=== PATIENT | male | born 1975 | race Hispanic/Latino ===

== ENCOUNTER 2018-06-21 19:39 | Emergency (ER) | payer OTHER ==
[~2018-06-21] VITALS: Ht 172.7 cm; Wt 83.9 kg
--- OUTSIDE RECORDS SUMMARY | 2018-06-21 19:44 | XMS REPORT ---
Author Author Micah Elliott Organization [employer] Address Unknown Phone Unavailable Care Team Providers Care Briquetting Machine Operator Name Role Phone Micah Elliott CP Unavailable Allergies No Known Allergies Problems Problem Type Condition Code Onset Dates Condition Status Problem Increased urinary frequency R35.0 Active Problem Low HDL (under 40) E78.6 Active Problem High serum estradiol R79.89 Active Problem Essential hypertension I10 Active Problem Erectile dysfunction due to diseases classified elsewhere N52.1 Active Problem Transient insomnia F51.02 Active Problem Obesity (BMI 30.0-34.9) E66.9 Active Medications No Known Medications Results No Known Results Summary Purpose [employer] Submission
--- OUTSIDE RECORDS SUMMARY | 2018-06-21 19:44 | XMS REPORT ---
Author Author Micah Elliott Organization [employer] Address Unknown Phone Unavailable Care Team Providers Care Transition Of Care Specialist Name Role Phone Micah Elliott CP Unavailable Allergies No Known Allergies Problems Problem Type Condition Code Onset Dates Condition Status Problem Essential hypertension I10 Active Problem Erectile dysfunction due to diseases classified elsewhere N52.1 Active Problem Obesity (BMI 30.0-34.9) E66.9 Active Assessment Decreased libido R68.82 Active Medications Medication Code System Code Instructions Start Date End Date Status Dosage HCG (Lyo) NDC 0 1,000 IU/mL SC/IM twice per week August 22, 2017 Inactive 500 IU HCG (Lyo) NDC 0 1,000 IU/mL SC/IM twice per week August 26, 2017 Active 500 IU Results No Known Results Summary Purpose [employer] Submission
--- OUTSIDE RECORDS SUMMARY | 2018-06-21 19:44 | XMS REPORT ---
Author Author Micah Elliott Organization [employer] Address Unknown Phone Unavailable Care Team Providers Care Electronics Teacher Name Role Phone Micah Elliott CP Unavailable Allergies, Adverse Reactions, Alerts Substance Reaction Event Type N.K.D.A. Info Not Available Non Drug Allergy Problems Problem Type Condition Code Onset Dates Condition Status Problem Essential hypertension I10 Active Problem Erectile dysfunction due to diseases classified elsewhere N52.1 Active Problem Obesity (BMI 30.0-34.9) E66.9 Active Assessment Decreased libido R68.82 Active Assessment Obesity (BMI 30.0-34.9) E66.9 Active Assessment Essential hypertension I10 Active Assessment Erectile dysfunction due to diseases classified elsewhere N52.1 Active Medications Medication Code System Code Instructions Start Date End Date Status Dosage TESTOSTERONE CYPIONATE (Grapeseed Oil) NDC 0 200mg/mL subcutaneously daily August 22, 2017 Active 0.15 ml HCG (Lyo) NDC 0 1,000 IU/mL SC/IM twice per week August 22, 2017 Active 500 IU Testosterone Cypionate NDC 74956253053 200 MG/ML subcutaneously daily August 22, 2017 Active 0.15 ml HCG (Lyo) NDC 0 1,000 IU/mL SC/IM twice per week Active 500 IU Cosentyx Sensoready Pen NDC 48376256115 150 MG/ML Subcutaneous once per month Active 2 ml Trimix NDC 0 .15 IM Active as directed Vital Signs Date/Time: August 22, 2017 Weight 205.4 lbs Height 67.5 in Temperature 98.4 F Cardiac Monitoring Heart Rate 63 /min BMI 31.69 Index Results No Known Results Summary Purpose [employer] Submission
--- OUTSIDE RECORDS SUMMARY | 2018-06-21 19:44 | XMS REPORT ---
Author Author Micah Elliott Organization [employer] Address Unknown Phone Unavailable Care Team Providers Care Critical Care Clinical Nurse Specialist Name Role Phone Micah Elliott CP Unavailable Allergies No Known Allergies Problems Problem Type Condition Code Onset Dates Condition Status Problem Low HDL (under 40) E78.6 Active Problem Increased urinary frequency R35.0 Active Problem Transient insomnia F51.02 Active Problem Obesity (BMI 30.0-34.9) E66.9 Active Problem Essential hypertension I10 Active Problem High serum estradiol R79.89 Active Problem Erectile dysfunction due to diseases classified elsewhere N52.1 Active Medications No Known Medications Results No Known Results Summary Purpose [employer] Submission
--- OUTSIDE RECORDS SUMMARY | 2018-06-21 19:44 | XMS REPORT ---
Author Author Micah Elliott Organization [employer] Address Unknown Phone Unavailable Care Team Providers Care Professor Of Voice Name Role Phone Micah Elliott CP Unavailable [...]
--- OUTSIDE RECORDS SUMMARY | 2018-06-21 19:44 | XMS REPORT ---
Author Author Micah Elliott Organization [employer] Address Unknown Phone Unavailable Care Team Providers Care Cooling Pan Tender Name Role Phone Micah Elliott CP Unavailable Allergies No Known Allergies Problems Problem Type Condition Code Onset Dates Condition Status Problem Essential hypertension I10 Active Problem Erectile dysfunction due to diseases classified elsewhere N52.1 Active Problem Obesity (BMI 30.0-34.9) E66.9 Active Medications No Known Medications Results No Known Results Summary Purpose [employer] Submission
--- OUTSIDE RECORDS SUMMARY | 2018-06-21 19:44 | XMS REPORT ---
Author Author Ngoc Harvey Organization [employer] Address Unknown Phone Unavailable Care Team Providers Care After School Counselor Name Role Phone Ngoc Harvey CP Unavailable Allergies, Adverse Reactions, Alerts Substance Reaction Event Type N.K.D.A. Info Not Available Non Drug Allergy Problems Problem Type Condition Code Onset Dates Condition Status Assessment Decreased libido without sexual dysfunction R68.82 Active Problem Low testosterone in male E29.1 Active Assessment Encounter to establish care Z76.89 Active Problem Chronic fatigue R53.82 Active Assessment Screening cholesterol level Z13.220 Active Assessment Low testosterone in male E29.1 Active Assessment Chronic fatigue R53.82 Active Assessment Urinary frequency R35.0 Active Medications Medication Code System Code Instructions Start Date End Date Status Dosage HydrOXYzine HCl [facility] [address]-28 25 MG Orally At night time Active 1 tablet Vital Signs Date/Time: May 27, 2017 BMI 30.10 Index Weight 198 lbs Height 68 in Temperature 98.3 F Blood Pressure Diastolic 79 mm Hg Blood Pressure Systolic 126 mm Hg Results No Known Results Summary Purpose [employer] Submission
--- OUTSIDE RECORDS SUMMARY | 2018-06-21 19:44 | XMS REPORT ---
Author Author BALDEMAR SELBY Organization [employer] Address Unknown Phone Unavailable Care Team Providers Care Edge Setter Name Role Phone BALDEMAR SELBY CP Unavailable Allergies No Known Allergies Problems No Known Problems Medications No Known Medications Results No Known Results Summary Purpose [employer] Submission
--- OUTSIDE RECORDS SUMMARY | 2018-06-21 19:44 | XMS REPORT ---
Author Author Micah Elliott Organization [employer] Address Unknown Phone Unavailable Care Team Providers Care Saddle And Harness Maker Name Role Phone Micah Elliott CP Unavailable Allergies No Known Allergies Problems Problem Type Condition Code Onset Dates Condition Status Problem Essential hypertension I10 Active Problem Erectile dysfunction due to diseases classified elsewhere N52.1 Active Problem Obesity (BMI 30.0-34.9) E66.9 Active Medications No Known Medications Results No Known Results Summary Purpose [employer] Submission
--- OUTSIDE RECORDS SUMMARY | 2018-06-21 19:44 | XMS REPORT ---
Author Author BALDEMAR SELBY Organization [employer] Address Unknown Phone Unavailable Care Team Providers Care Hot Stick Man Name Role Phone BALDEMAR SELBY CP Unavailable Allergies No Known Allergies Problems No Known Problems Medications No Known Medications Results No Known Results Summary Purpose [employer] Submission
--- OUTSIDE RECORDS SUMMARY | 2018-06-21 19:44 | XMS REPORT ---
Author Author Micah Elliott Organization [employer] Address Unknown Phone Unavailable Care Team Providers Care Acid Correction Hand Name Role Phone Micah Elliott CP Unavailable Allergies No Known Allergies Problems Problem Type Condition Code Onset Dates Condition Status Problem Essential hypertension I10 Active Problem Erectile dysfunction due to diseases classified elsewhere N52.1 Active Problem Obesity (BMI 30.0-34.9) E66.9 Active Medications No Known Medications Results No Known Results Summary Purpose [employer] Submission
--- OUTSIDE RECORDS SUMMARY | 2018-06-21 19:44 | XMS REPORT ---
Author Author Micah Elliott Organization [employer] Address Unknown Phone Unavailable Care Team Providers Care Financial Assistance Advisor Name Role Phone Micah Elliott CP Unavailable [...]
--- OUTSIDE RECORDS SUMMARY | 2018-06-21 19:44 | XMS REPORT ---
Author Author Micah Elliott Organization [employer] Address Unknown Phone Unavailable Care Team Providers Care Spreader Box Operator Name Role Phone Micah Elliott CP Unavailable Allergies No Known Allergies Problems Problem Type Condition Code Onset Dates Condition Status Problem Essential hypertension I10 Active Problem Erectile dysfunction due to diseases classified elsewhere N52.1 Active Problem Obesity (BMI 30.0-34.9) E66.9 Active Medications No Known Medications Results No Known Results Summary Purpose [employer] Submission
--- OUTSIDE RECORDS SUMMARY | 2018-06-21 19:44 | XMS REPORT ---
Author Author Micah Elliott Organization [employer] Address Unknown Phone Unavailable Care Team Providers Care Nurse Ortho Name Role Phone Micah Elliott CP Unavailable Allergies, Adverse Reactions, Alerts Substance Reaction Event Type N.K.D.A. Info Not Available Non Drug Allergy Problems Problem Type Condition Code Onset Dates Condition Status Assessment Low HDL (under 40) E78.6 Active Assessment Essential hypertension I10 Active Assessment Transient insomnia F51.02 Active Assessment High serum estradiol R79.89 Active Assessment Erectile dysfunction due to diseases classified elsewhere N52.1 Active Problem Low HDL (under 40) E78.6 Active Problem Increased urinary frequency R35.0 Active Problem Transient insomnia F51.02 Active Problem Obesity (BMI 30.0-34.9) E66.9 Active Problem Essential hypertension I10 Active Problem High serum estradiol R79.89 Active Problem Erectile dysfunction due to diseases classified elsewhere N52.1 Active Medications Medication Code System Code Instructions Start Date End Date Status Dosage Lisinopril NDC 13894548584 5 MG Orally Once a day September 05, 2017 Active 1 tablet Trimix NDC 0 .15 IM Active as directed Zolpidem Tartrate NDC 82538148758 10 mg Orally Once a day September 05, 2017 Active 1 tablet at bedtime as needed ANASTROZOLE NDC 0 0.25 mg PO Every other day November 18, 2017 Feb 16, 2018 Active 1 tablet Testosterone Cypionate NDC 95881429506 200 MG/ML subcutaneously daily August 22, 2017 Active 0.15 ml MetFORMIN HCl ER NDC 13268641216 500 mg Orally Once a day Inactive 1 tablet Cosentyx Sensoready Pen NDC 38030185770 150 MG/ML Subcutaneous once per month Active 2 ml HCG (Lyo) NDC 0 1,000 IU/mL SC/IM twice per week Active 500 IU Vital Signs Date/Time: November 18, 2017 Weight 176.2 lbs Height 67.5 in Temperature 97.4 F Cardiac Monitoring Heart Rate 77 /min BMI 27.19 Index Results No Known Results Summary Purpose [employer] Submission
--- OUTSIDE RECORDS SUMMARY | 2018-06-21 19:44 | XMS REPORT ---
Author Author Micah Elliott Organization [employer] Address Unknown Phone Unavailable Care Team Providers Care Marketing Coordinator Name Role Phone Micah Elliott CP Unavailable Allergies, Adverse Reactions, Alerts Substance Reaction Event Type N.K.D.A. Info Not Available Non Drug Allergy Problems Problem Type Condition Code Onset Dates Condition Status Assessment High serum estradiol R79.89 Active Assessment Essential hypertension I10 Active Assessment Erectile dysfunction due to diseases classified elsewhere N52.1 Active Problem Low HDL (under 40) E78.6 Active Problem Increased urinary frequency R35.0 Active Problem Transient insomnia F51.02 Active Problem Obesity (BMI 30.0-34.9) E66.9 Active Problem Essential hypertension I10 Active Problem High serum estradiol R79.89 Active Problem Erectile dysfunction due to diseases classified elsewhere N52.1 Active Assessment Transient insomnia F51.02 Active Assessment Increased urinary frequency R35.0 Active Assessment Low HDL (under 40) E78.6 Active Medications Medication Code System Code Instructions Start Date End Date Status Dosage HCG (Lyo) NDC 0 1,000 IU/mL SC/IM twice per week Active 500 IU Trimix NDC 0 .15 IM Active as directed Testosterone Cypionate NDC 63760820233 200 MG/ML subcutaneously daily August 22, 2017 Active 0.15 ml Cosentyx Sensoready Pen NDC 73515172777 150 MG/ML Subcutaneous once per month Active 2 ml HCG (Lyo) NDC 0 1,000 IU/mL SC/IM twice per week August 26, 2017 Active 500 IU Zolpidem Tartrate NDC 54457757144 10 mg Orally Once a day September 05, 2017 Active 1 tablet at bedtime as needed Lisinopril NDC 78047661175 5 MG Orally Once a day September 05, 2017 Active 1 tablet Vital Signs Date/Time: September 05, 2017 Weight 201.4 lbs Height 67.5 in Temperature 97.7 F Cardiac Monitoring Heart Rate 65 /min BMI 31.07 Index Results No Known Results Summary Purpose [employer] Submission
--- OUTSIDE RECORDS SUMMARY | 2018-06-21 19:44 | XMS REPORT ---
Author Author Micah Elliott Organization [employer] Address Unknown Phone Unavailable Care Team Providers Care Account Information Clerk Name Role Phone Micah Elliott CP Unavailable [...]
--- OUTSIDE RECORDS SUMMARY | 2018-06-21 19:44 | XMS REPORT ---
Author Author Micah Elliott Organization [employer] Address Unknown Phone Unavailable Care Team Providers Care Laser Print Operator Name Role Phone Micah Elliott CP Unavailable Allergies No Known Allergies Problems Problem Type Condition Code Onset Dates Condition Status Problem Essential hypertension I10 Active Problem Erectile dysfunction due to diseases classified elsewhere N52.1 Active Problem Obesity (BMI 30.0-34.9) E66.9 Active Medications No Known Medications Results No Known Results Summary Purpose [employer] Submission
--- OUTSIDE RECORDS SUMMARY | 2018-06-21 19:44 | XMS REPORT | Continuity of Care Document ---
Author Author [facility] Interface Address Unknown Phone Unavailable Problems Problem Status Onset Date Classification Date Reported Comments Source Acute prostatitis 05/22/2017 08/22/2017 [facility] N41.0 Active 05/07/2017 [facility] Decreased libido without sexual dysfunction Active Diagnosis 06/01/2017 Enayet Santy Low testosterone in male Active Problem 06/01/2017 Enayet Santy Encounter to establish care Active Diagnosis 06/01/2017 Enayemil Mcintyrem Chronic fatigue Active Problem 06/01/2017 Enayet [facility] Screening cholesterol level Active Diagnosis 06/01/2017 Enayet Miguelinam Urinary frequency Active Diagnosis 06/01/2017 Enerinn Chaparroksm Essential hypertension Active Problem 06/21/2018 2.16.840.1.549568.4.391.11.45657 Erectile dysfunction due to diseases classified elsewhere Active Problem 06/21/2018 2.16.840.1.326546.4.391.11.67558 Obesity Active Problem 06/21/2018 2.16.840.1.457373.4.391.11.00354 Decreased libido Active Diagnosis 08/28/2017 2.16.840.1.708580.4.391.11.13668 Low HDL Active Problem 06/21/2018 2.16.840.1.333429.4.391.11.80490 Increased urinary frequency Active Problem 06/21/2018 2.16.840.1.341665.4.391.11.63538 Transient insomnia Active Problem 06/21/2018 2.16.840.1.026302.4.391.11.59696 High serum estradiol Active Problem 06/21/2018 2.16.840.1.737303.4.391.11.40894 Hyperprolactinemia Active Problem 06/21/2018 2.16.840.1.159682.4.391.11.78604 Male hypogonadism Active Problem 06/21/2018 2.16.840.1.476923.4.391.11.17638 Abscess of axilla, left Active Diagnosis 12/20/2017 2.16.840.1.478344.4.391.11.15708 Cellulitis of axilla, left Active Diagnosis 12/19/2017 2.16.840.1.897287.4.391.11.32882 Hyperglycemia Active Problem 06/21/2018 2.16.840.1.360806.4.391.11.61867 Contusion of left calf, initial encounter Active Diagnosis 12/31/2017 2.16.840.1.719454.4.391.11.96788 Left foot pain Active Diagnosis 12/31/2017 2.16.840.1.081084.4.391.11.39499 Cough Active Diagnosis 06/21/2018 2.16.840.1.616524.4.391.11.94153 Right groin mass Active Diagnosis 02/26/2018 2.16.840.1.317374.4.391.11.95066 Frequent urination Resolved Problem 08/22/2017 [facility] Breast lump Resolved Problem 08/22/2017 [facility] Painful urination Resolved Problem 08/22/2017 [facility] Medications Medication Details Route Status Patient Instructions Ordering Provider Order Date Source Bactrim DS 1 tablet Orally Active 800-160 MG Orally Twice a day Jodee Gross 12/18/2017 2.16.840.1.194453.4.391.11.99651 Testosterone Cypionate 0.1 ml subcutaneously Active 200 MG/ML subcutaneously daily Elliott 12/12/2017 2.16.840.1.051703.4.391.11.71257 Meloxicam 1 tablet Orally Active 7.5 MG Orally Once a day Elliott 12/12/2017 2.16.840.1.279139.4.391.11.67557 ANASTROZOLE 1 tablet PO Active 0.25 mg PO Every other day Elliott 11/18/2017 2.16.840.1.057995.4.391.11.99699 Zolpidem Tartrate 1 tablet at bedtime as needed Orally Active 10 mg Orally Once a day Elliott 09/05/2017 2.16.840.1.770335.4.391.11.52432 Lisinopril 1 tablet Orally Active 5 MG Orally Once a day Elliott 09/05/2017 2.16.840.1.000688.4.391.11.16430 HCG (Lyo) 500 IU SC/IM Active 1,000 IU/mL SC/IM twice per week Elliott 08/26/2017 2.16.840.1.537210.4.391.11.45085 HCG (Lyo) 500 IU SC/IM Active 1,000 IU/mL SC/IM twice per week Elliott 08/22/2017 2.16840.1.186379.4.391.11.51953 TESTOSTERONE CYPIONATE (Grapeseed Oil) 0.15 ml subcutaneously Active 200mg/mL subcutaneously daily Elliott 08/22/2017 2.16.840.1.649991.4.391.11.32159 Testosterone Cypionate 0.15 ml subcutaneously Active 200 MG/ML subcutaneously daily Elliott 08/22/2017 2.16840.1.468949.4.391.11.75212 Omnipaque 300 100 mL, Route: IV, Drug Form: SOLN, ONCE, Start date: 05/16/17 8:56:00 MANAGER RETAIL, Stop date: 05/16/17 8:56:00 CSTNotes: (Same as:Omnipaque 300). WASTE: F/P - Black; E - Municipal Trash Bin Inactive 05/16/2017 [facility] HydrOXYzine HCl 1 tablet Orally Active 25 MG Orally At night time Wes Valenzuelaannemil [place] HCG (Lyo) 500 iu SC/IM Active 1,000 IU/mL SC/IM twice per week Elliott 840.1.308095.4.391.1173191 Cosentyx Sensoready Pen 2 ml Subcutaneous Active 150 MG/ML Subcutaneous once per month Elliott 840.1.639061.4.391.11.64063 Trimix as directed IM Active .15 IM Elliott 840.1.427976.4.391.11.93616 MetFORMIN HCl ER 1 tablet Orally Active 500 mg Orally Once a day Earl 2.16.840.1.481189.4.391.11.10237 Allergies, Adverse Reactions, Alerts Substance Category Reaction Severity Reaction type Status Date Reported Comments Source N.K.D.A. Adverse Reaction Info Not Available Adverse Reaction Active 12/18/2017 2.16.840.1.510714.4.391.11.54346 Immunizations Immunization Date Given Site Status Last Updated Comments Source Results Order Name Results Value Reference Range Date Interpretation Comments Source CHEM PANEL eGFR 105 mL/min/1.73m2 05/16/2017 Result Comment: The eGFR is calculated using the CKD-EPI formula. In most young, healthy individuals the eGFR will be >90 mL/min/1.73m2. The eGFR declines with age. An eGFR of 60-89 may be normal in some populations, particularly the elderly, for whom the CKD-EPI formula has not been extensively validated. Use of the eGFR is not recommended in the following populations: Individuals with unstable creatinine concentrations, including patients and those with serious co-morbid conditions. Patients with extremes in muscle mass or diet. The data above are obtained from the National Kidney Disease Education Program (NKDEP) which additionally recommends that when the eGFR is used in patients with extremes of body mass index for purposes of drug dosing, the eGFR should be multiplied by the estimated BMI. [facility] CHEM PANEL POC Creatinine 0.9 mg/dL 0.5 - 1.4 05/16/2017 [facility] Abdomen/Pelvis w/wo IV contrast CT Abdomen/Pelvis w/wo IV contrast CT Clinical Indication: Abdominal pain Comparison: December 24, 2008 TECHNIQUE: Helical imaging was performed before and after injection of IV contrast, from the diaphragm through the symphysis with multiplanar reformations obtained. IV CONTRAST: 100 mL of Omnipaque GI CONTRAST: Oral contrast was administered. DLP: 1966 mGy-cm FINDINGS: LOWER CHEST: The lung bases are clear. LIVER: The liver parenchyma is normal in appearance without masses or intrahepatic biliary ductal dilatation. The portal vein is normal in caliber. BILIARY TREE: The common bile duct is normal in caliber without evidence of filling defects. GALLBLADDER: The gallbladder is unremarkable, there is no evidence of cholelithiasis or cholecystitis. PANCREAS: The pancreas is unremarkable. The pancreatic duct is normal in caliber. SPLEEN: The spleen is normal in size and there are no parenchymal abnormalities. ADRENALS: The right adrenal gland is unremarkable. The left adrenal gland is unremarkable. KIDNEYS: The noncontrast images of the kidneys demonstrate no renal or ureteral calculi, nor evidence of hydronephrosis or hydroureter. The kidneys demonstrates normal contrast enhancement. There are no masses. BOWEL: The visualized portion of the esophagus is unremarkable. The stomach is unremarkable. The small bowel is normal in caliber and there is no evidence of masses or obstruction. The colon is normal in caliber, there are no masses, there is no evidence of diverticulosis or diverticulitis. APPENDIX: The appendix is not seen suggesting prior appendectomy. PELVIS: There are no pelvic masses. The urinary bladder is unremarkable. The prostate and seminal vesicles are unremarkable. PERITONEUM: There is no evidence for free intraperitoneal fluid or air. SOFT TISSUES: The soft tissues are unremarkable. There is no evidence of masses or hernias. LYMPH NODES: There is no evidence of mesenteric, retroperitoneal, or inguinal lymphadenopathy. VASCULATURE: The abdominal aorta is normal in caliber. The branches of the abdominal aorta are widely patent. MUSCULOSKELETAL: There is grade 1 anterolisthesis of L5 on S1. IMPRESSION: 1. Unremarkable CT examination of the abdomen and pelvis. SL: [id number] 05/16/2017 - - Read by: Radha Linares MD Dictated Date/time: 05/16/17 11:38 Electronically Signed by: Radha Linares MD 05/16/17 11:41 FINAL REPORT [facility] Vital Signs Vital Sign Value Date Comments Source Weight 164.8 02/18/2018 2.16.840.1.161721.4.391.11.18674 Height 67.5 02/18/2018 2.16.840.1.417713.4.391.11.58542 Temperature Oral (F) 97.0 F 02/18/2018 2.16.840.1.603665.4.391.11.96606 Heart Rate 77 02/18/2018 2.16.840.1.859718.4.391.11.42314 Weight 172.2 12/18/2017 2.16.840.1.358678.4.391.11.13570 Height 67.5 12/18/2017 2.16.840.1.084406.4.391.11.71051 Temperature Oral (F) 97.7 F 12/18/2017 2.16.840.1.450250.4.391.11.52715 Heart Rate 77 12/18/2017 2.16.840.1.744357.4.391.11.10403 Weight 171.2 12/12/2017 2.16.840.1.287103.4.391.11.60093 Height 67.5 12/12/2017 2.16.840.1.122062.4.391.11.07361 Temperature Oral (F) 97.2 F 12/12/2017 2.16.840.1.234524.4.391.11.80073 Heart Rate 76 12/12/2017 2.16.840.1.949302.4.391.11.93647 Weight 176.2 11/18/2017 2.16.840.1.577617.4.391.11.56140 Height 67.5 11/18/2017 2.16.840.1.315579.4.391.11.96338 Temperature Oral (F) 97.4 F 11/18/2017 2.16.840.1.110074.4.391.11.80282 Heart Rate 77 11/18/2017 2.16.840.1.600666.4.391.11.48711 Weight 201.4 09/05/2017 2.16.840.1.003227.4.391.11.74303 Height 67.5 09/05/2017 2.16.840.1.851027.4.391.11.53887 Temperature Oral (F) 97.7 F 09/05/2017 2.16.840.1.501395.4.391.11.69612 Heart Rate 65 09/05/2017 2.16.840.1.227112.4.391.11.59534 Weight 205.4 08/22/2017 2.16.840.1.670385.4.391.11.01386 Height 67.5 08/22/2017 2.16.840.1.651495.4.391.11.37713 Temperature Oral (F) 98.4 F 08/22/2017 2.16.840.1.255301.4.391.11.60583 Heart Rate 63 08/22/2017 2.16.840.1.655600.4.391.11.93973 Weight 198 05/27/2017 Enayet Rahim Height 68 05/27/2017 Enayet Rahim Temperature Oral (F) 98.3 F 05/27/2017 Enayet Rahim Diastolic (mm Hg) 79 05/27/2017 Enayet Rahim Systolic (mm Hg) 126 05/27/2017 Enayet Rahim Encounters Location Location Details Encounter Type Encounter Number Reason For Visit Attending Provider ADM Date DC Date Status Source Outpatient [id number] [facility] 05/30/2016 Active [facility] Outpatient [id number] [facility] 06/14/2016 [facility] [id number] [facility] 06/19/2016 [facility] [id number] [facility] 06/19/2016 [facility] [id number] [facility] 07/23/2016 [facility] Out[facility] [id number] [facility] 09/03/2016 Active [facility] [id number] [facility] 01/04/2017 Active [facility] [id number] [facility] 01[facility]21/2017 [facility] [id number] [facility] 03/25/2017 Active [facility] U[facility] Ambulatory Pre-Reg [id number] [facility] 03/25/2017 03/25/2017 [facility] Outpatient [id number] Miguel Angel [place] 05/16/2017 05/17/2017 [facility] Outpatient [id number] [facility] 03/25/2018 [facility] [id number] [facility] 04/11/2018 Active [facility] [id number] [facility] 04/24/2018 Active [facility] Procedures Procedure Code Date Perfomer Comments Source
--- OUTSIDE RECORDS SUMMARY | 2018-06-21 19:44 | XMS REPORT ---
Author Author Micah Elliott Organization [employer] Address Unknown Phone Unavailable Care Team Providers Care Food Dehydrator Operator Name Role Phone Micah Elliott CP Unavailable Allergies No Known Allergies Problems Problem Type Condition Code Onset Dates Condition Status Problem Essential hypertension I10 Active Problem Erectile dysfunction due to diseases classified elsewhere N52.1 Active Problem Hyperprolactinemia E22.1 Active Problem Transient insomnia F51.02 Active Problem Male hypogonadism E29.1 Active Problem High serum estradiol R79.89 Active Problem Obesity (BMI 30.0-34.9) E66.9 Active Problem Increased urinary frequency R35.0 Active Problem Low HDL (under 40) E78.6 Active Medications No Known Medications Results No Known Results Summary Purpose [employer] Submission
--- OUTSIDE RECORDS SUMMARY | 2018-06-21 19:44 | XMS REPORT ---
Author Author Micah Elliott Organization [employer] Address Unknown Phone Unavailable Care Team Providers Care Carpenters Helper Name Role Phone Micah Elliott CP Unavailable [...]
--- OUTSIDE RECORDS SUMMARY | 2018-06-21 19:45 | XMS REPORT ---
Author Author Micah Elliott Organization [employer] Address Unknown Phone Unavailable Care Team Providers Care Mobile Sales Assistant Name Role Phone Micah Elliott CP Unavailable Allergies No Known Allergies Problems Problem Type Condition Code Onset Dates Condition Status Problem Essential hypertension I10 Active Problem Erectile dysfunction due to diseases classified elsewhere N52.1 Active Problem Obesity (BMI 30.0-34.9) E66.9 Active Problem Hyperprolactinemia E22.1 Active Problem Hyperglycemia R73.9 Active Problem Male hypogonadism E29.1 Active Problem Increased urinary frequency R35.0 Active Problem High serum estradiol R79.89 Active Problem Low HDL (under 40) E78.6 Active Problem Transient insomnia F51.02 Active Assessment Hyperglycemia R73.9 Active Assessment High serum estradiol R79.89 Active Assessment Right groin mass R19.09 Active Assessment Male hypogonadism E29.1 Active Assessment Hyperprolactinemia E22.1 Active Medications Medication Code System Code Instructions Start Date End Date Status Dosage ANASTROZOLE NDC 0 0.25 mg PO Every other day November 18, 2017 Active 1 tablet Testosterone Cypionate NDC 75186994763 200 MG/ML subcutaneously daily Dec 12, 2017 Active 0.1 ml Cosentyx Sensoready Pen NDC 42865838297 150 MG/ML Subcutaneous once per month Active 2 ml Zolpidem Tartrate ND 04546635807 10 mg Orally Once a day September 05, 2017 Active 1 tablet at bedtime as needed Lisinopril ND 40926262864 5 MG Orally Once a day September 05, 2017 Active 1 tablet HCG (Lyo) NDC 0 1,000 IU/mL SC/IM twice per week Active 500 iu Trimix NDC 0 .15 IM Active as directed Vital Signs Date/Time: Feb 18, 2018 Weight 164.8 lbs Height 67.5 in Temperature 97.0 F Cardiac Monitoring Heart Rate 77 /min BMI 25.43 Index Results No Known Results Summary Purpose [employer] Submission
--- OUTSIDE RECORDS SUMMARY | 2018-06-21 19:45 | XMS REPORT ---
Author Author Micah Elliott Organization [employer] Address Unknown Phone Unavailable Care Team Providers Care School Based Therapist Name Role Phone Micah Elliott CP Unavailable [...]
--- OUTSIDE RECORDS SUMMARY | 2018-06-21 19:45 | XMS REPORT | Summary of Care ---
Author Author [facility] Organization [facility] Address Unknown Phone Unavailable Encounter HQ Christinantr_alikarina(FIN) [id number] Date(s): 03/25/17 - 03/25/17 [facility] [address] [facility] [place] [address] [phone] Attending Physician: Ramiro Elliott MD Referring Physician: Reilly Mckeon MD Vital Signs No data available for this section Problem List Condition Effective Dates Status Health Status Informant Frequent Resolved urination(Confirmed) Breast Resolved lump(Confirmed) Painful Resolved urination(Confirmed) Allergies, Adverse Reactions, Alerts Substance Reaction Severity Status NKDA Active Medications No data available for this section Results No data available for this section Immunizations No data available for this section Procedures No data available for this section Social History Social History Type Response Smoking Status Never smoker; Exposure to Tobacco Smoke None; Cigarette Smoking Last 365 Days No; Reg Smoking Cessation Counseling No Assessment and Plan No data available for this section
--- OUTSIDE RECORDS SUMMARY | 2018-06-21 19:45 | XMS REPORT ---
Author Author Micah Elliott [facility] [employer] Address Unknown Phone Unavailable Care Team Providers Care Rehabilitation Specialist Name Role Phone Micah Elliott CP Unavailable Allergies, Adverse Reactions, Alerts Substance Reaction Event Type N.K.D.A. Info Not Available Non Drug Allergy Problems Problem Type Condition Code Onset Dates Condition Status Assessment Hyperglycemia R73.9 Active Problem Essential hypertension I10 Active Problem Erectile dysfunction due to diseases classified elsewhere N52.1 Active Problem Hyperprolactinemia E22.1 Active Problem Transient insomnia F51.02 Active Problem Male hypogonadism E29.1 Active Problem High serum estradiol R79.89 Active Problem Obesity (BMI 30.0-34.9) E66.9 Active Problem Increased urinary frequency R35.0 Active Problem Low HDL (under 40) E78.6 Active Assessment Contusion of left calf, initial encounter S80.12XA Active Assessment Male hypogonadism E29.1 Active Assessment Left foot pain M79.672 Active Assessment Hyperprolactinemia E22.1 Active Medications Medication Code System Code Instructions Start Date End Date Status Dosage Testosterone Cypionate NDC 04317493837 200 MG/ML subcutaneously daily Dec 12, 2017 Active 0.1 ml ANASTROZOLE NDC 0 0.25 mg PO Every other day November 18, 2017 Feb 16, 2018 Active 1 tablet Trimix NDC 0 .15 IM Active as directed Meloxicam NDC 55958097333 7.5 MG Orally Once a day Dec 12, 2017 Jan 11, 2018 Active 1 tablet Cosentyx Sensoready Pen NDC 37387364426 150 MG/ML Subcutaneous once per month Active 2 ml Zolpidem Tartrate NDC 91869234577 10 mg Orally Once a day September 05, 2017 Active 1 tablet at bedtime as needed HCG (Lyo) NDC 0 1,000 IU/mL SC/IM twice per week Active 500 IU Lisinopril NDC 24456140744 5 MG Orally Once a day September 05, 2017 Active 1 tablet Testosterone Cypionate NDC 09643524375 200 MG/ML subcutaneously daily August 22, 2017 Inactive 0.15 ml Vital Signs Date/Time: Dec 12, 2017 Weight 171.2 lbs Height 67.5 in Temperature 97.2 F Cardiac Monitoring Heart Rate 76 /min BMI 26.42 Index Results No Known Results Summary Purpose [employer] Submission
--- OUTSIDE RECORDS SUMMARY | 2018-06-21 19:45 | XMS REPORT ---
Author Author Tiffani Guerrier Organization [employer] Address Unknown Phone Unavailable Care Team Providers Care Biofuels Plant Manager Name Role Phone Tiffani Guerrier Unavailable Allergies, Adverse Reactions, Alerts Substance Reaction Event Type N.K.D.A. Info Not Available Non Drug Allergy Problems Problem Type Condition Code Onset Dates Condition Status Assessment Abscess of axilla, left L02.412 Active Problem Essential hypertension I10 Active Problem Erectile dysfunction due to diseases classified elsewhere N52.1 Active Assessment Cellulitis of axilla, left L03.112 Active Problem Hyperprolactinemia E22.1 Active Problem Transient insomnia F51.02 Active Problem Male hypogonadism E29.1 Active Problem High serum estradiol R79.89 Active Problem Obesity (BMI 30.0-34.9) E66.9 Active Problem Increased urinary frequency R35.0 Active Problem Low HDL (under 40) E78.6 Active Medications Medication Code System Code Instructions Start Date End Date Status Dosage Trimix NDC 0 .15 IM Active as directed ANASTROZOLE NDC 0 0.25 mg PO Every other day November 18, 2017 Feb 16, 2018 Active 1 tablet Testosterone Cypionate NDC 98088144720 200 MG/ML subcutaneously daily Dec 12, 2017 Active 0.1 ml Cosentyx Sensoready Pen ND 49242833027 150 MG/ML Subcutaneous once per month Active 2 ml Bactrim DS ND 20279003720 800-160 MG Orally Twice a day Dec 18, 2017 Dec 28, 2017 Active 1 tablet HCG (Lyo) NDC 0 1,000 IU/mL SC/IM twice per week Active 500 IU Zolpidem Tartrate NDC 71289432631 10 mg Orally Once a day September 05, 2017 Active 1 tablet at bedtime as needed Meloxicam NDC 29444232680 7.5 MG Orally Once a day Dec 12, 2017 Jan 11, 2018 Active 1 tablet Lisinopril NDC 20763560785 5 MG Orally Once a day September 05, 2017 Active 1 tablet Vital Signs Date/Time: Dec 18, 2017 Weight 172.2 lbs Height 67.5 in Temperature 97.7 F Cardiac Monitoring Heart Rate 77 /min BMI 26.57 Index Results No Known Results Summary Purpose [employer] Submission
--- OUTSIDE RECORDS SUMMARY | 2018-06-21 19:45 | XMS REPORT ---
Author Author Tiffani Guerrier Organization [employer] Address Unknown Phone Unavailable Care Team Providers Care Rn Family Name Role Phone Tiffani Guerrier CP Unavailable Allergies No Known Allergies Problems [...] E78.6 Active Problem Transient insomnia F51.02 Active Medications No Known Medications Results No Known Results Summary Purpose [employer] Submission
--- OUTSIDE RECORDS SUMMARY | 2018-06-21 19:45 | XMS REPORT ---
Author Author Tiffani Guerrier Organization [employer] Address Unknown Phone Unavailable Care Team Providers Care Cvt Rn Name Role Phone Tiffani Guerrier CP Unavailable [...] Instructions Start Date End Date Status Dosage Bactrim DS [facility] 86110300757 800-160 MG Orally Twice a day Dec 18, 2017 Dec 29, 2017 Active 1 tablet Results No Known Results Summary Purpose [employer] Submission
--- OUTSIDE RECORDS SUMMARY | 2018-06-21 19:45 | XMS REPORT ---
Author Author Micah Elliott Organization [employer] Address Unknown Phone Unavailable Care Team Providers Care Family Nurse Name Role Phone Micah Elliott CP Unavailable [...]
--- OUTSIDE RECORDS SUMMARY | 2018-06-21 19:45 | XMS REPORT ---
Author Author Tiffani Guerrier Organization [employer] Address Unknown Phone Unavailable Care Team Providers Care Associate Professor Of Philosophy Name Role Phone Tiffani Guerrier CP Unavailable Allergies No Known Allergies Problems Problem Type Condition Code Onset Dates Condition Status Problem Essential hypertension I10 Active Problem Erectile dysfunction due to diseases classified elsewhere N52.1 Active Problem Obesity (BMI 30.0-34.9) E66.9 Active Assessment Cough R05 Active Problem Hyperprolactinemia E22.1 Active Problem Hyperglycemia R73.9 Active Problem Male hypogonadism E29.1 Active Problem Increased urinary frequency R35.0 Active Problem High serum estradiol R79.89 Active Problem Low HDL (under 40) E78.6 Active Problem Transient insomnia F51.02 Active Medications No Known Medications Results No Known Results Summary Purpose [employer] Submission
--- OUTSIDE RECORDS SUMMARY | 2018-06-21 19:45 | XMS REPORT | Summary of Care ---
Author Author [facility] Organization [facility] Address Unknown Phone Unavailable Encounter HQ [place]en[place](FIN) [id number] Date(s): 05/16/17 - 05/16/17 [facility] [address] [place] [address]- [phone] Encounter Diagnosis Acute prostatitis (Final) - 05/21/17 Discharge Disposition: Home or Self Care Attending Physician: Miguel Angel Kwong MD Referring Physician: Miguel Angel Kwong MD Vital Signs No data available for this section Problem List Condition Effective Dates Status Health Status Informant Frequent Resolved urination(Confirmed) Breast Resolved lump(Confirmed) Painful Resolved urination(Confirmed) Allergies, Adverse Reactions, Alerts Substance Reaction Severity Status NKDA Active Medications Omnipaque 300 100 mL, Route: IV, Drug Form: SOLN, ONCE, Start date: 05/16/17 8:56:00 RESISTANCE WELDER, Stop date: 05/16/17 8:56:00 RESISTANCE WELDER Notes: (Same as:Omnipaque 300).WASTE: F/P - Black; E - Municipal Trash Bin Start Date: 05/16/17 Stop Date: 05/16/17 Status: Completed Results CHEM PANEL Most recent to 1 oldest [Reference Range]: eGFR 105 mL/min/1.73m2 1 *NA* (05/16/17 8:21 AM) POC Creatinine 0.9 mg/dL [0.5-1.4 mg/dL] (05/16/17 8:21 AM) 1Result Comment: The eGFR is calculated using the [...] from the National Kidney Disease Education Program ( NKDEP) which additionally recommends that when the eGFR is used in patients with extremes of body mass index for purposes of drug dosing, the eGFR should be mul tiplied by the estimated BMI. Immunizations No data available for this section Procedures No data available for this section Social History Social History Type Response Smoking Status Never smoker; Exposure to Tobacco Smoke None; Cigarette Smoking Last 365 Days No; Reg Smoking Cessation Counseling No entered on: 09/03/16 Assessment and Plan No data available for this section
--- OUTSIDE RECORDS SUMMARY | 2018-06-21 19:45 | XMS REPORT ---
Author Author Miach Elliott Organization [employer] Address Unknown Phone Unavailable Care Team Providers Care Harness Brusher Name Role Phone Micah Elliott CP Unavailable [...]
[2018-06-21] MEDS ORDERED: VANCOMYCIN 1GM/NS 250 ML 250 ML IV ONE (20:15)
[2018-06-21] MEDS ORDERED: BACTRIM DS TAB1 EACH PO (20:24)
[2018-06-21] MEDS ORDERED: KEFLEX500 MG PO (20:24)
[2018-06-21] MEDS ORDERED: SODIUM CHLORIDE 0.9% 1000ML 1,000 ML IV SCH ×2 (20:30→22:00)
--- NOTE | 2018-06-21 21:03 | Diagnostic Imaging Report ---
EXAMINATION: CXR 2 VIEW - HOPD INDICATION: Left upper arm swelling. COMPARISON: None FINDINGS: TUBES and LINES: None. LUNGS: Lungs are well inflated. Lungs are clear. There is no evidence of pneumonia or pulmonary edema. PLEURA: No pleural effusion or pneumothorax. HEART AND MEDIASTINUM: The cardiomediastinal silhouette is unremarkable. BONES AND SOFT TISSUES: No acute osseous lesion. Soft tissues are unremarkable. UPPER ABDOMEN: No free air under the diaphragm. IMPRESSION: No acute thoracic abnormality. Signed by: DR. Kee Vences MD on 06/21/2018 9:00 PM
--- NOTE | 2018-06-21 21:08 | NUR ---
pt request to go to [facility], called the transfer center
--- NOTE | 2018-06-21 21:52 | NUR ---
Doc to Doc done and acceptance by Dr. Vargas at [facility].
--- NOTE | 2018-06-21 21:57 | NUR ---
Acceptance by sales program coordinator, Keren Madden, RN [phone], direct admit to 6th floor. [facility] RN report at [phone]
--- NOTE | 2018-06-21 22:00 | NUR ---
pt resting in bed with sunglasses on and lights in room dimmed for comfort.
[2018-06-21] MEDS ORDERED: LISINOPRIL10 MG PO (22:36)
--- NOTE | 2018-06-21 22:43 | Diagnostic Imaging Report ---
EXAM: CT left upper extremity WITH contrast INDICATION: Swelling COMPARISON: None. TECHNIQUE: The left upper extremity was scanned utilizing a multidetector helical scanner after administration of IV contrast. Coronal and sagittal reformations were obtained. Routine protocol was performed. IV CONTRAST: 100 mL of Isovue-370 ORAL CONTRAST: Water COMPLICATIONS: None RADIATION DOSE: Total DLP: 336.9 mGy*cm Dose modulation, iterative reconstruction, and/or weight based adjustment of the mA/kV was utilized to reduce the radiation dose to as low as reasonably achievable. FINDINGS: BONES: No acute osseous abnormalities. Calcific densities adjacent to the glenoid may represent loose intra-articular bodies of the glenohumeral joint. SOFT TISSUES: Edema within the deltoid muscle with ill-defined hypoattenuating approximately 5.6 x 2.2 cm area with faint possible peripheral enhancement (series 5 image 83) and more focal hypoattenuating areas measuring fat density. Edema in the left upper extremity. IMPRESSION: Ill-defined hypoattenuating 5.6 cm area in the left deltoid muscle may represent myonecrosis given reported history of rhabdomyolysis. Phlegmon with developing abscess another consideration the appropriate clinical setting. Signed by: DR. Kee Vences MD on 06/21/2018 10:40 PM
--- NOTE | 2018-06-21 22:50 | NUR ---
called the transfer center as pt requested to go to [facility]
--- NOTE | 2018-06-21 23:12 | NUR ---
Doc to Doc with Dr. Renetta moore
--- NOTE | 2018-06-21 23:39 | NUR ---
Acceptance by transfer center coordinator, Keren Madden RN by Giselle Cui at [facility] [place] as direct admit. Report to geoscience laboratory technician at [phone] fax face sheet and MOT to [phone].
--- NOTE | 2018-06-22 00:10 | NUR ---
called [facility] to transfer pt
--- NOTE | 2018-06-22 01:08 | NUR ---
report to MARGE Emmanuel at [facility]
== END 2018-06-22 01:05 | disposition other institution (70) ==
LOC: FSED 19:39
DX: L03.114 Cellulitis of left upper limb (principal); T79.6XXA Traumatic ischemia of muscle, initial encounter; I10 Essential (primary) hypertension; Z87.891 Personal history of nicotine dependence
CPT/HCPCS: 71046; 99284

== ENCOUNTER 2018-08-15 13:25 | Emergency (ER) | payer OTHER ==
[~2018-08-15] VITALS: Ht 172.7 cm; Wt 83.9 kg
[~2018-08-15 13:25] MED LIST: BACTRIM DS TAB1 EACH PO; KEFLEX500 MG PO; LISINOPRIL10 MG PO
--- OUTSIDE RECORDS SUMMARY | 2018-08-15 13:29 | XMS REPORT ---
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 Info Not Available Non Drug Allergy Problems Problem Type Condition Code Onset Dates Condition Status Problem Erectile dysfunction due to diseases classified elsewhere N52.1 Active Problem Increased urinary frequency R35.0 Active Problem High serum estradiol R79.89 Active Problem Type 2 diabetes mellitus with other specified complication E11.69 Active Assessment Myositis of left lower leg, unspecified myositis type M60.862 Active Problem Hyperprolactinemia E22.1 Active Assessment Myositis of right lower extremity, unspecified myositis type M60.861 Active Problem Mixed hyperlipidemia E78.2 Active Problem Low HDL (under 40) E78.6 Active Problem Transient insomnia F51.02 Active Problem Male hypogonadism E29.1 Active Problem Hyperglycemia R73.9 Active Assessment Transient insomnia F51.02 Active Assessment High serum estradiol R79.89 Active Assessment Mixed hyperlipidemia E78.2 Active Assessment Essential hypertension I10 Active Assessment Elevated creatine kinase R74.8 Active Assessment Hyperglycemia R73.9 Active Problem Essential hypertension I10 Active Assessment Male hypogonadism E29.1 Active Problem Obesity (BMI 30.0-34.9) E66.9 Active Medications Medication Code System Code Instructions Start Date End Date Status Dosage Lisinopril ND 97441020967 10 mg Orally Once a day Active 1 tablet HCG (Lyo) NDC 0 1,000 IU/mL SC/IM twice per week Active 500 iu Benzonatate NDC 96483355271 100 mg Orally Three times a day Jun 10, 2018 Active 1 - 2 capsules as needed for cough Zolpidem Tartrate NDC 45449127570 10 mg Orally Once a day Active 1 tablet at bedtime as needed ANASTROZOLE NDC 0 0.25 mg PO Every other day Active 1 tablet Testosterone Cypionate NDC 11399200761 200 MG/ML subcutaneously every day (qd) May 23, 2018 Active 0.08 ml MetFORMIN HCl ER [facility] 60266155371 500 mg Orally Once a day May 23, 2018 Active 1 tablet with evening meal Proctosol HC [facility] 83645107293 2.5 % Rectal Twice a day Jun 13, 2018 Active 1 application to affected area MetFORMIN HCl ER ND 27655626337 500 mg Orally twice a day (bid) Active [address] [facility] 77874769539 100 mg Orally Three times a day July 16, 2018 Active 1-2 capsule as needed for cough Cosentyx Sensoready Pen ND 25940464220 150 MG/ML Subcutaneous once per month Active 2 ml Trimix NDC 0 .15 IM Active as directed Vital Signs Date/Time: August 13, 2018 Weight 175 lbs Height 67.5 in Temperature 98.6 F Cardiac Monitoring Heart Rate 77 /min BMI 27.00 Index Results Name Result Date Reference Range Unit Abnormality Flag EKG Summary Purpose [employer] Submission
--- OUTSIDE RECORDS SUMMARY | 2018-08-15 13:29 | XMS REPORT | Continuity of Care Document ---
Author Author [facility] Interface Address Unknown Phone Unavailable Problems Problem Status Onset Date Classification Date Reported Comments Source R05 Active 07/16/2018 [facility] RHABDOMYOLYSIS, CELLULITIS OF FACE Active 06/21/2018 [facility] LEFT ARM SWOLLEN AND COUGH Active 06/21/2018 [facility] Acute prostatitis 05/22/2017 08/22/2017 [facility] N41.0 Active 05/07/2017 [facility] Essential hypertension Active Diagnosis 08/14/2018 [id number] Erectile dysfunction due to diseases classified elsewhere Active Problem 08/14/2018 [id number] Obesity Active Problem 08/14/2018 2.16.840.1.191340.4.391.11.57751 Decreased libido Active Diagnosis 08/28/2017 2.16.840.1.527085.4.391.11.16822 Low HDL Active Problem 08/14/2018 2.16.840.1.492864.4.391.11.11156 Increased urinary frequency Active Problem 08/14/2018 2.16.840.1.779942.4.391.11.55690 Transient insomnia Active Problem 08/14/2018 2.16.840.1.866046.4.391.11.14691 High serum estradiol Active Problem 08/14/2018 2.16.840.1.386043.4.391.11.33805 Decreased libido without sexual dysfunction Active Diagnosis 06/01/2017 [facility] Low testosterone in male Active Problem 06/01/2017 [facility] Encounter to establish care Active Diagnosis 06/01/2017 [facility] Chronic fatigue Active Problem 06/01/2017 [facility] Screening cholesterol level Active Diagnosis 06/01/2017 [facility] Urinary frequency Active Diagnosis 06/01/2017 [facility] Hyperprolactinemia Active Problem 08/14/2018 [id number] Male hypogonadism Active Problem 08/14/2018 2.16.840.1.530324.4.391.11.62432 Abscess of axilla, left Active Diagnosis 12/20/2017 2.16.840.1.967295.4.391.11.62557 Cellulitis of axilla, left Active Diagnosis 12/19/2017 2.16.840.1.092422.4.391.11.98199 Hyperglycemia Active Problem 08/14/2018 2.16.840.1.816409.4.391.11.99152 Cough Active Diagnosis 07/17/2018 2.16.840.1.802636.4.391.11.77076 Contusion of left calf, initial encounter Active Diagnosis 12/31/2017 2.16.840.1.392635.4.391.11.62567 Left foot pain Active Diagnosis 12/31/2017 2.16.840.1.895518.4.391.11.91683 Right groin mass Active Diagnosis 02/26/2018 2.16.840.1.788340.4.391.11.47314 Type 2 diabetes mellitus with other specified complication Active Problem 08/14/2018 2.16.840.1.389579.4.391.11.52796 Mixed hyperlipidemia Active Problem 08/14/2018 2.16.840.1.873683.4.391.11.67616 Ganglion cyst of dorsum of left wrist Active Diagnosis 08/13/2018 2.16.840.1.302265.4.391.11.66841 Other non-recurrent acute nonsuppurative otitis media of right ear Active Diagnosis 08/13/2018 2.16.840.1.034387.4.391.11.33904 Myositis of left lower leg, unspecified myositis type Active Diagnosis 08/14/2018 2.16.840.1.236577.4.391.11.42742 Myositis of right lower extremity, unspecified myositis type Active Diagnosis 08/14/2018 2.16.840.1.918453.4.391.11.56694 Elevated creatine kinase Active Diagnosis 08/14/2018 2.16.840.1.676624.4.391.11.63188 Non-traumatic rhabdomyolysis Active Diagnosis 07/17/2018 2.16.840.1.903884.4.391.11.18959 Frequent urination Resolved Problem 07/19/2018 [facility] Breast lump Resolved Problem 07/19/2018 [facility] Painful urination Resolved Problem 07/19/2018 [facility] Rhabdomyolysis 06/28/2018 [facility] RHABDOMYOLYSIS Active [facility] Medications Medication Details Route Status Patient Instructions Ordering Provider Order Date Source Benzonatate 1-2 capsule as needed for cough Orally Active 100 mg Orally Three times a day Jodee Gross 07/16/2018 [id number] vanc trough vanc trough, reminder, Drug form: MISC, Route: MISC, ONCE, 06/25/18 17:30:00 [employer]ON[employer]EARCH ENGINEER, Stop date: 06/25/18 17:30:00 A[employer]ONAUTICAL RESEARCH ENGINEER Inactive 06/25/2018 [facility] Acetaminophen 300 MG / Codeine Phosphate 30 MG Oral Tablet [Tylenol with Codeine #3] 1 tab, PO, Q6H, PRN Pain, X 7 day, # 28 tab, 0 Refill(s) Active 06/25/2018 [facility] Cephalexin 500 MG Oral Capsule [Keflex] 500 mg=1 cap, PO, QID, X 10 day, # 40 cap, 0 Refill(s), Pharmacy: [facility] [id number] Active 06/25/2018 [facility] RN-DO NOT give 15:00 Vanc on 06/24 till trough drawn` RN-DO NOT give 15:00 Vanc on 06/24 till trough drawn`, Attn:RN, Drug form: MISC, Route: MISC, ONCE, 06/24/18 14:00:00 A[employer]ONAUTICAL RESEARCH ENGINEER, Stop date: 06/24/18 14:00:00 AERONAUTICAL RESEARCH ENGINEER Inactive 06/24/2018 [facility] Metformin 250 mg, PO, BID, 0 Refill(s) Active 06/23/2018 [facility] Lisinopril 10 mg, 2 tab, Route: PO, Drug form: TAB, Daily, Dosing Weight 84.091, kg, Start date: 06/23/18 9:00:00 A[employer]ONAUTICAL RESEARCH ENGINEER, Duration: 30 day, Stop date: 07/22/18 9:00:00 CDTNotes: (Same as: Prinivil, Zestril) No Longer Active 06/23/2018 [facility] Vancomycin 1 ea, Route: IV, Q12H, Dosing Weight 84.091, kg, Start date: 06/22/18 21:00:00 A[employer]ONAUTICAL RESEARCH ENGINEER, Duration: 10 day, Stop date: 07/02/18 9:00:00 AERONAUTICAL RESEARCH ENGINEER, Pharmacy to dose, ABX Indication: Skin/Soft Tissue Infection Inactive 06/23/2018 [facility] Maxipime + Sodium Chloride 0.9% IV 100 mL 1 gm, Route: IVPB, ABXQ8H, Start date: 06/22/18 21:00:00 A[employer]ONAUTICAL RESEARCH ENGINEER, Duration: 10 day, Stop date: 07/02/18 13:00:00 AERONAUTICAL RESEARCH ENGINEER, ABX Indication: Skin/Soft Tissue InfectionNotes: (Same As: Maxipime) MEDICATION WASTE Product Size: 1000 mg Product Wasted: ___ mg No Longer Active 06/23/2018 [facility] vancomycin + Sodium Chloride 0.9% IV 250 mL 1,250 mg, Route: IVPB, ABXQ8H, Start date: 06/22/18 13:00:00 AERONAUTICAL RESEARCH ENGINEER, Stop date: 07/02/18 10:00:00 AERONAUTICAL RESEARCH ENGINEER, ABX Indication: Skin/Soft Tissue InfectionNotes: TIME CRITICAL MEDICATION (Same As: Vancocin) Infusion rate 2001 mg: infuse over 2.5 hours For adult patients only: Round to nearest 250 mg per Medical Staff approval MEDICATION WASTE Product Size: 1000 mg Product Wasted: ___ mg No Longer Active 06/22/2018 [facility] Maxipime + sterile water 10 mL 1 gm, Route: IV, ONCE, Start date: 06/22/18 12:44:00 AERONAUTICAL RESEARCH ENGINEER, Stop date: 06/22/18 12:44:00 AERONAUTICAL RESEARCH ENGINEER, ABX Indication: Skin/Soft Tissue InfectionNotes: (Same As: Maxipime) MEDICATION WASTE Product Size: 1000 mg Product Wasted: ___ mg Inactive 06/22/2018 [facility] Lactated Ringers IV 1,000 mL 1,000 mL, Rate: 150 ml/hr, Infuse over: 6.7 hr, Route: IV, Dosing Weight 84.091 kg, Total Volume: 1,000, Start date: 06/22/18 12:14:00 AERONAUTICAL RESEARCH ENGINEER, Duration: 30 day, Stop date: 07/22/18 12:13:00 CDT, 2.03, m2 No Longer Active 06/22/2018 [facility] Nicotine 7 mg, 1 patch, Route: TOP, Drug form: ERFILM, Daily, Dosing Weight 84.091, kg, Priority: NOW, Start date: 06/22/18 12:13:00 AERONAUTICAL RESEARCH ENGINEER, Duration: 30 day, Stop date: 07/22/18 9:00:00 CDTNotes: (Same as: Habitrol) "Remove old patch before application of new patch" WASTE: F/P - P Waste Black; E - P Waste Black No Longer Active 06/22/2018 [facility] cefepime 1 gm, Route: IVPB, ABXQ8H, Dosing Weight 84.091, kg, (CrCl >/=50 ml/min), Start date: 06/22/18 11:00:00 AERONAUTICAL RESEARCH ENGINEER, Duration: 10 day, Stop date: 07/02/18 3:00:00 AERONAUTICAL RESEARCH ENGINEER, ABX Indication: Skin/Soft Tissue Infection Inactive 06/22/2018 [facility] Ancef + Sodium Chloride 0.9% IV 100 mL 500 mg, Route: IVPB, ABXQ8H, Dosing Weight 84.091, kg, Start date: 06/22/18 5:00:00 AERONAUTICAL RESEARCH ENGINEER, Duration: 5 day, Stop date: 06/26/18 21:00:00 AERONAUTICAL RESEARCH ENGINEER, ABX Indication: Skin/Soft Tissue InfectionNotes: (Same As: Ancef, Kefzol) Inactive 06/22/2018 [facility] normal saline 0.9% IV 1,000 mL 1,000 mL, Rate: 125 ml/hr, Infuse over: 8 hr, Route: IV, Dosing Weight 84.091 kg, Total Volume: 1,000, Start date: 06/22/18 4:11:00 AERONAUTICAL RESEARCH ENGINEER, Duration: 30 day, Stop date: 07/22/18 4:10:00 CDT, 2.03, m2 Inactive 06/22/2018 [facility] Glucagon 1 mg, Route: IM, Drug form: PDR/INJ, PRN, Dosing Weight 84.091, kg, PRN Blood Glucose Results, Start date: 06/22/18 4:08:00 AERONAUTICAL RESEARCH ENGINEER, Duration: 30 day, Stop date: 07/22/18 5:07:00 CDT No Longer Active 06/22/2018 [facility] Dextrose 50% Syringe 12.5 gm, 25 mL, Route: IVP, Drug Form: INJ, Dosing Weight 84.091, kg, PRN, PRN Blood Glucose Results, Start date: 06/22/18 4:08:00 AERONAUTICAL RESEARCH ENGINEER, Duration: 30 day, Stop date: 07/22/18 5:07:00 CDT No Longer Active 06/22/2018 [facility] Acetaminophen 650 mg, 2 tab, Route: PO, Drug form: TAB, Q4H, Dosing Weight 84.091, kg, PRN For Temp > 100.4 F, Start date: 06/22/18 4:08:00 AERONAUTICAL RESEARCH ENGINEER, Duration: 30 day, Stop date: 07/22/18 4:07:00 CDTNotes: Do not exceed 4 gm/day. (Same as: Tylenol) No Longer Active 06/22/2018 [facility] Cephalexin Monohydrate (Keflex) 500 Mg Capsule Four Times Daily Active [facility] 06/21/2018 [facility] Sulfamethoxazole/Trimethoprim (Bactrim Ds Tablet) 1 Each Tablet Twice A Day Active [facility] 06/21/2018 [facility] Proctosol HC 1 application to affected area Rectal Active 2.5 % Rectal Twice a day [facility] 06/13/2018 2.16.840.1.983305.4.391.11.26102 Benzonatate 1 - 2 capsules as needed for cough Orally Active 100 mg Orally Three times a day [facility] 06/10/2018 2.16.840.1.779080.4.391.11.49260 MetFORMIN HCl ER 1 tablet with evening meal Orally Active 500 mg Orally Once a day [facility] 05/23/2018 2.16.840.1.588078.4.391.11.61175 Testosterone Cypionate 0.08 ml subcutaneously Active 200 MG/ML subcutaneously every day (qd) [facility] 05/23/2018 2.16.840.1.786679.4.391.11.17110 Lisinopril 1 tablet Orally Active 10 mg Orally Once a day [facility] 04/23/2018 2.16.840.1.247101.4.391.11.87461 Cefdinir 2 capsules Orally Active 300 MG Orally daily [facility] 04/23/2018 2.16.840.1.270020.4.391.11.72441 Bactrim DS 1 tablet Orally Active 800-160 MG Orally Twice a day [facility] 12/18/2017 2.16.840.1.708416.4.391.11.97877 Testosterone Cypionate 0.1 ml subcutaneously Active 200 MG/ML subcutaneously daily [facility] 12/12/2017 2.16.840.1.491651.4.391.11.35875 Meloxicam 1 tablet Orally Active 7.5 MG Orally Once a day [facility] 12/12/2017 2.16.840.1.364653.4.391.11.84908 ANASTROZOLE 1 tablet PO Active 0.25 mg PO Every other day [facility] 11/18/2017 2.16.840.1.705757.4.391.11.58420 Lisinopril 1 tablet Orally Active 5 MG Orally Once a day [facility] 09/05/2017 2.16.840.1.161474.4.391.11.32976 Zolpidem Tartrate 1 tablet at bedtime as needed Orally Active 10 mg Orally Once a day [facility] 09/05/2017 2.16.840.1.157966.4.391.11.53951 HCG (Lyo) 500 IU SC/IM Active 1,000 IU/mL SC/IM twice per week [facility] 08/26/2017 2.16.840.1.431805.4.391.11.70102 HCG (Lyo) 500 IU SC/IM Active 1,000 IU/mL SC/IM twice per week [facility] 08/22/2017 2.16.840.1.061097.4.391.11.73412 TESTOSTERONE CYPIONATE (Grapeseed Oil) 0.15 ml subcutaneously Active 200mg/mL subcutaneously daily [facility] 08/22/2017 2.16.840.1.447501.4.391.11.51483 Testosterone Cypionate 0.15 ml subcutaneously Active 200 MG/ML subcutaneously daily [facility] 08/22/2017 2.16.840.1.721081.4.391.11.94812 Omnipaque 300 100 mL, Route: IV, Drug Form: SOLN, ONCE, Start date: 05/16/17 8:56:00 AERONAUTICAL RESEARCH ENGINEER, Stop date: 05/16/17 8:56:00 CSTNotes: (Same as:Omnipaque 300). WASTE: F/P - Black; E - Municipal Trash Bin Inactive 05/16/2017 [facility] Lisinopril 10 Mg Tablet Daily Active [facility] HydrOXYzine HCl 1 tablet Orally Active 25 MG Orally At night time [facility] HCG (Lyo) 500 iu SC/IM Active 1,000 IU/mL SC/IM twice per week [facility] 2.16840.1.229700.4.391.11.45931 Cosentyx Sensoready Pen 2 ml Subcutaneous Active 150 MG/ML Subcutaneous once per month [facility] [place] 2.16840.1.975021.4.391.11.32938 Trimix as directed IM [facility] 2.16.840.1.201281.4.391.11.44464 MetFORMIN HCl ER 1 tablet Orally Active 500 mg Orally twice a day (bid) [facility] 2.16840.1.302728.4.391.11.69837 Lisinopril 1 tablet Orally Active 10 mg Orally Once a day [facility] 2.16840.1.568482.4.391.11.00798 Testosterone Cypionate 0.1 ml subcutaneously Active 200 MG/ML subcutaneously daily [facility] 2.16840.1.592380.4.391.11.21443 ANASTROZOLE 1 tablet PO Active 0.25 mg PO Every [facility] 2.16840.1.858951.4.391.11.35786 Zolpidem Tartrate 1 tablet at bedtime as needed Orally Active 10 mg Orally Once a day [facility] 2.16.840.1.208672.4.391.11.80719 Allergies, Adverse Reactions, Alerts Substance Category Reaction Severity Reaction type Status Date Reported Comments Source N.K.D.A. Adverse Reaction Info Not Available Adverse Reaction Active 08/13/2018 2.16.840.1.072649.4.391.11.12564 Immunizations Immunization Date Given Site Status Last Updated Comments Source Results Order Name Results Value Reference Range Date Interpretation Comments Source Chest 2 views DX Chest 2 views DX Patient Name: TORI KO : 1975; Age: 42 years y/o Male MR: [id number] * CHEST, 2 views HISTORY: - r05 cough; COMPARISON: None TECHNIQUE: Frontal and lateral radiographs of the chest were obtained. FINDINGS: The lungs are clear. There are no pleural effusions. The heart and pulmonary vasculature are within normal limits. The regional skeleton is unremarkable. IMPRESSION: 1. No active disease. SL: [id number] 07/16/2018 - - Read by: Hang Nguyen MD Dictated Date/time: 07/16/18 17:58 Electronically Signed by: Hang Nguyen MD 07/16/18 17:58 FINAL REPORT [facility] CARDIAC ENZYMES Total CK 437 unit/L 12 - 191 06/25/2018 [facility] ELECTROLYTES CO2 29 meq/L 24 - 32 06/25/2018 [facility] ELECTROLYTES Calcium Lvl 8.3 mg/dL 8.5 - 10.5 06/25/2018 [facility] ELECTROLYTES eGFR 109 mL/min/1.73m2 06/25/2018 Result Comment: The eGFR is calculated using [...] should be multiplied by the estimated BMI. [facility] ELECTROLYTES AGAP 4.9 meq/L 10.0 - 20.0 06/25/2018 [facility] ELECTROLYTES Creatinine Lvl 0.80 mg/dL 0.50 - 1.40 06/25/2018 [facility] ELECTROLYTES Potassium Lvl 3.9 meq/L 3.5 - 5.1 06/25/2018 [facility] ELECTROLYTES Chloride Lvl 108 meq/L 95 - 109 06/25/2018 [facility] ELECTROLYTES BUN 8 mg/dL 7 - 22 06/25/2018 [facility] ELECTROLYTES Sodium Lvl 138 meq/L 135 - 145 06/25/2018 [facility] ELECTROLYTES Glucose Lvl 109 mg/dL 70 - 99 06/25/2018 [facility] TOXICOLOGY Vanco Tr TND 1415 06/24/2018 [facility] TOXICOLOGY Vanco Tr 5.4 ug/ml 06/24/2018 [facility] CARDIAC ENZYMES Total CK 759 unit/L 12 - 191 06/24/2018 [facility] CHEM PANEL eGFR 109 mL/min/1.73m2 06/24/2018 Result Comment: The eGFR is calculated using [...] should be multiplied by the estimated BMI. [facility] CHEM PANEL Calcium Lvl 8.2 mg/dL 8.5 - 10.5 06/24/2018 [facility] CHEM PANEL AGAP 12.3 meq/L 10.0 - 20.0 06/24/2018 [facility] CHEM PANEL Glucose Lvl 109 mg/dL 70 - 99 06/24/2018 [facility] CHEM PANEL CO2 24 meq/L 24 - 32 06/24/2018 [facility] CHEM PANEL Potassium Lvl 4.3 meq/L 3.5 - 5.1 06/24/2018 [facility] CHEM PANEL Chloride Lvl 109 meq/L 95 - 109 06/24/2018 [facility] CHEM PANEL Creatinine Lvl 0.81 mg/dL 0.50 - 1.40 06/24/2018 [facility] PANEL BUN 8 mg/dL 7 - 22 06/24/2018 [facility] CHEM PANEL Sodium Lvl 141 meq/L 135 - 145 06/24/2018 [facility] Gram Stain Report No Wbc'S Or Organisms Seen 06/23/2018 [facility] Culture: Aspirate/Body Fluid/Tissue No Growth 06/23/2018 [facility] CARDIAC ENZYMES Total CK 1366 unit/L 12 - 191 06/23/2018 [facility] CHEM PANEL eGFR 109 mL/min/1.73m2 06/23/2018 Result Comment: The eGFR is calculated using [...] should be multiplied by the estimated BMI. [facility] CHEM PANEL Total Protein 6.2 g/dL 6.4 - 8.4 06/23/2018 [facility] CHEM PANEL Albumin Lvl 2.8 g/dL 3.5 - 5.0 06/23/2018 [facility] CHEM PANEL AST 52 unit/L 0 - 37 06/23/2018 [facility] CHEM PANEL Alk Phos 60 unit/L 39 - 136 06/23/2018 [facility] CHEM PANEL Creatinine Lvl 0.81 mg/dL 0.50 - 1.40 06/23/2018 [facility] CHEM PANEL BUN 8 mg/dL 7 - 22 06/23/2018 [facility] CHEM PANEL Glucose Lvl 119 mg/dL 70 - 99 06/23/2018 [facility] CHEM PANEL Bili Total 0.4 mg/dL 0.2 - 1.3 06/23/2018 [facility] CHEM PANEL Chloride Lvl 109 meq/L 95 - 109 06/23/2018 [facility] CHEM PANEL CO2 26 meq/L 24 - 32 06/23/2018 [facility] CHEM PANEL ALT 62 unit/L 0 - 65 06/23/2018 [facility] CHEM PANEL Sodium Lvl 140 meq/L 135 - 145 06/23/2018 [facility] CHEM PANEL Potassium Lvl 4.2 meq/L 3.5 - 5.1 06/23/2018 [facility] CHEM PANEL Calcium Lvl 7.8 mg/dL 8.5 - 10.5 06/23/2018 [facility] CHEM PANEL Globulin 3.4 g/dL 2.7 - 4.2 06/23/2018 [facility] CHEM PANEL A/G Ratio 0.8 0.7 - 1.6 06/23/2018 [facility] CHEM PANEL AGAP 9.2 meq/L 10.0 - 20.0 06/23/2018 [facility] CHEM PANEL B/C Ratio 10 6 - 25 06/23/2018 [facility] HEMATOLOGY Basophils # 0.1 K/CMM 0.0 - 0.2 06/23/2018 [facility] HEMATOLOGY Lymphocytes # 1.4 K/CMM 1.0 - 5.5 06/23/2018 [facility] HEMATOLOGY Eosinophils # 0.2 K/CMM 0.0 - 0.5 06/23/2018 [facility] HEMATOLOGY Monocytes # 0.7 K/CMM 0.0 - 0.8 06/23/2018 [facility] HEMATOLOGY Segs 67.1 % 45.0 - 75.0 06/23/2018 [facility] HEMATOLOGY Lymphocytes 19.9 % 20.0 - 40.0 06/23/2018 [facility] HEMATOLOGY Eosinophils 2.9 % 0.0 - 4.0 06/23/2018 [facility] HEMATOLOGY Neutrophils # 4.7 K/CMM 1.5 - 8.1 06/23/2018 [facility] HEMATOLOGY Basophils 0.8 % 0.0 - 1.0 06/23/2018 [facility] HEMATOLOGY Monocytes 9.3 % 2.0 - 12.0 06/23/2018 [facility] HEMATOLOGY WBC 7.0 K/CMM 3.7 - 10.4 06/23/2018 [facility] HEMATOLOGY MCV 93.1 fL 80.0 - 94.0 06/23/2018 [facility] HEMATOLOGY Hgb 13.2 g/dL 14.0 - 18.0 06/23/2018 [facility] RBC 4.37 M/CMM 4.70 - 6.10 06/23/[address] [facility] Hct 40.7 % 42.0 - 54.0 06/23/[address] [facility] MCHC 32.5 g/dL 32.0 - 36.0 06/23/[address] [facility] MCH 30.2 pg 27.0 - 31.0 06/23/[address] [facility] RDW 14.8 % 11.5 - 14.5 06/23/[address] [facility] MPV 8.2 fL 7.4 - 10.4 06/23/2018 [facility] Platelet 318 K/CMM 133 - 450 06/23/2018 [facility] Abscess or cyst drain/aspirate VR Abscess or cyst drain/aspirate VR Patient Name: TORI KO : 1975 Age: 42 years, Male MR: [id number] Study: Abscess or cyst drain/aspirate VR 06/23/2018 8:13 AERONAUTICAL RESEARCH ENGINEER Procedure: Ultrasound-guided deep subcutaneous tissue aspiration. Indication: Left deltoid abscess Clinical information: Left Deltoid Abscess. S/P Testosterone injections - Left Deltoid Abscess. S/P Testosterone injections. Comparison: CT upper extremity from outside hospital Preoperative diagnosis: Left deltoid abscess Postoperative diagnosis: Same Pain control: Subcutaneous 1% lidocaine for local anesthesia. Estimated blood loss: Less than 1 cc Implants/grafts: None Blood products administered: None Specimens: Trace aspirate from fluid collection. Complications: None immediate Condition at procedure completion: Stable. Disposition: PACU Clinical discussion: The previous imaging studies were reviewed. The abnormality to be drained was noted on the previous examination. A safe approach was determined, based on the prior images. The risks and benefits of the procedure were discussed with the patient. Questions were answered. An informed consent was obtained. Technique: Focused sonographic evaluation of the posterior left shoulder demonstrated a echogenic region in the posterior aspect of the deltoid, consistent with the abnormality noted on the previous CT of the upper extremity. A safe approach was determined. The skin was prepped and draped in usual sterile fashion. 1% lidocaine was infused into the subcutaneous tissues for local anesthesia. An 18-gauge needle was advanced into the focal region of abnormality. Minimal fluid could be aspirated. No solid mass or large drainable fluid collection was visualized. Upon completion, the needles were removed. A sterile dressing was applied. The patient tolerated the procedure well. There are no immediate complications. The patient was transferred to the postprocedure area in stable unchanged condition for further monitoring. Impression: Successful ultrasound-guided aspiration of the focal abnormality in the region of the deltoid muscle. No drainable fluid collection or mass was visualized. Trace fluid was aspirated. SL: [id number] 06/23/2018 - - Read by: Taye Carson MD Dictated Date/time: 06/23/18 14:35 Electronically Signed by: Taye Carson MD 06/23/18 15:32 FINAL REPORT [facility] HEMATOLOGY INR 1.04 0.85 - 1.17 06/23/2018 [facility] PT 13.4 s 12.0 - 14.7 06/23/2018 [facility] DRUG SCREEN U Phencyclidine Scr Negative *NA* (06/22/18 11:46 AM) Negative 06/22/2018 [facility] DRUG SCREEN U Cannab Scr Negative *NA* (06/22/18 11:46 AM) Negative 06/22/2018 [facility] DRUG SCREEN UDS Note See Note *NA* (06/22/18 11:46 AM) 06/22/2018 [facility] DRUG SCREEN U Opiate Scr Negative *NA* (06/22/18 11:46 AM) Negative 06/22/2018 [facility] DRUG SCREEN U Cocaine Scr Negative *NA* (06/22/18 11:46 AM) Negative 06/22/2018 [facility] DRUG SCREEN U Kiera Scr Negative *NA* (06/22/18 11:46 AM) Negative 06/22/2018 [facility] DRUG SCREEN U Benzodiaz Scr Negative *NA* (06/22/18 11:46 AM) Negative 06/22/2018 [facility] DRUG SCREEN U Amph Scr Negative *NA* (06/22/18 11:46 AM) Negative 06/22/2018 [facility] MCH 30.8 pg 27.0 - 31.0 06/22/[address] [facility] MCHC 33.7 g/dL 32.0 - 36.0 06/22/[address] [facility] RDW 14.6 % 11.5 - 14.5 06/22/2018 [facility] Platelet 302 K/CMM 133 - 450 06/22/[address] [facility] [facility] MPV 8.1 fL 7.4 - 10.4 06/22/2018 [facility] WBC 8.9 K/CMM 3.7 - 10.4 06/22/2018 [facility] HEMATOLOGY Hct 38.8 % 42.0 - 54.0 06/22/2018 [facility] HEMATOLOGY MCV 91.4 fL 80.0 - 94.0 06/22/2018 [facility] RBC 4.24 M/CMM 4.70 - 6.10 06/22/2018 [facility] Hgb 13.1 g/dL 14.0 - 18.0 06/22/2018 [facility] HEMATOLOGY Basophils # 0.1 K/CMM 0.0 - 0.2 06/22/2018 [facility] HEMATOLOGY Monocytes # 0.9 K/CMM 0.0 - 0.8 06/22/2018 [facility] HEMATOLOGY Eosinophils # 0.1 K/CMM 0.0 - 0.5 06/22/2018 [facility] Neutrophils # 6.1 K/CMM 1.5 - 8.1 06/22/2018 [facility] Lymphocytes # 1.6 K/CMM 1.0 - 5.5 06/22/2018 [facility] Basophils 1.5 % 0.0 - 1.0 06/22/2018 [facility] Lymphocytes 18.5 % 20.0 - 40.0 06/22/2018 [facility] Monocytes 9.9 % 2.0 - 12.0 06/22/2018 [facility] Segs 68.6 % 45.0 - 75.0 06/22/2018 [facility] Eosinophils 1.5 % 0.0 - 4.0 06/22/2018 [facility] SPECIAL CHEMISTRY Hgb A1C 4.8 % <=5.6 % 06/22/2018 [facility] BACTERIAL - SEROLOGY MRSA by PCR Negative (06/22/18 6:06 AM) 06/22/2018 [facility] Ext Upper Venous Doppler Unilat US Ext Upper Venous Doppler Unilat US Patient Name: TORI KO : 1975; Age: 42 years y/o Male MR: [id number] Study: Ext Upper Venous Doppler Unilat US 06/22/2018 4:11 AERONAUTICAL RESEARCH ENGINEER Ordering Physician: Giselle Jackson MD Comparison: None Clinical Indication: - r/o DVT; left upper extremity pain and swelling Color and Doppler venous flow, respiratory phasicity, compression and augmentation is noted at the deep venous structures of the left upper extremity. IMPRESSION: No deep venous thrombosis noted at the left upper extremity SL: [id number] 06/22/2018 - - Read by: Gage Salazar MD Dictated Date/time: 06/22/18 07:18 Electronically Signed by: Gage Salazar MD 06/22/18 07:19 FINAL REPORT [facility] CHEM [facility] eGFR 105 mL/min/1.73m2 05/16/2017 Result Comment: The [...] should be multiplied by the estimated BMI. [facility] CHEM PANEL POC Creatinine 0.9 mg/dL 0.5 - 1.4 05/16/2017 [facility] Abdomen/Pelvis w/wo IV contrast CT Abdomen/Pelvis w/wo [...] examination of the abdomen and pelvis. SL: [id number] 05/16/2017 - - Read by: Radha Linares MD Dictated Date/time: 05/16/17 11:38 Electronically Signed by: Radha Linares MD 05/16/17 11:41 FINAL REPORT [facility] Vital Signs Vital Sign Value Date Comments Source Weight 175 08/13/2018 2.16.840.1.854877.4.391.11.79073 Height 67.5 08/13/2018 2.16.840.1.169725.4.391.11.76329 Temperature Oral (F) 98.6 F 08/13/2018 2.16.840.1.553966.4.391.11.34185 Heart Rate 77 08/13/2018 2.16.840.1.511650.4.391.11.72926 Weight 184 07/16/2018 2.16.840.1.607056.4.391.11.03720 Height 67.5 07/16/2018 2.16.840.1.523077.4.391.11.03185 Temperature Oral (F) 98.3 F 07/16/2018 2.16.840.1.958870.4.391.11.97833 Heart Rate 70 07/16/2018 2.16.840.1.080352.4.391.11.62466 Systolic (mm Hg) 131 06/25/2018 [facility] Diastolic (mm Hg) 77 06/25/2018 [facility] Heart Rate 75 06/25/2018 [facility] Respitory Rate 18 06/25/2018 [facility] Temperature Oral (F) 98 F 06/25/2018 [facility] Respitory Rate 18 06/25/2018 [facility] Systolic (mm Hg) 126 06/25/2018 [facility] Diastolic (mm Hg) 72 06/25/2018 [facility] Heart Rate 74 06/25/2018 [facility] Temperature Oral (F) 98.1 F 06/25/2018 [facility] Systolic (mm Hg) 124 06/25/2018 [facility] Diastolic (mm Hg) 69 06/25/2018 [facility] Respitory Rate 18 06/25/2018 [facility] Heart Rate 68 06/25/2018 [facility] Temperature Oral (F) 98.9 F 06/25/2018 [facility] BMI Calculated 28.19 06/22/2018 [facility] Height 172.72 cm 06/22/2018 [facility] Weight 84.091 06/22/2018 [facility] Weight 180 05/23/2018 2.16.840.1.334915.4.391.11.92616 Height 67.5 05/23/2018 2.16.840.1.238291.4.391.11.62837 Temperature Oral (F) 98.6 F 05/23/2018 2.16.840.1.774964.4.391.11.48557 Heart Rate 78 05/23/2018 2.16.840.1.542092.4.391.11.16805 Weight 180 04/23/2018 2.16.840.1.266702.4.391.11.76862 Height 67.5 04/23/2018 2.16.840.1.865270.4.391.11.98865 Temperature Oral (F) 98.4 F 04/23/2018 2.16.840.1.321824.4.391.11.41329 Heart Rate 79 04/23/2018 2.16.840.1.218936.4.391.11.84231 Weight 164.8 02/18/2018 2.16.840.1.748667.4.391.11.42293 Height 67.5 02/18/2018 2.16.840.1.682187.4.391.11.10407 Temperature Oral (F) 97.0 F 02/18/2018 2.16.840.1.407328.4.391.11.26211 Heart Rate 77 02/18/2018 2.16.840.1.424322.4.391.11.83245 Weight 172.2 12/18/2017 2.16.840.1.964010.4.391.11.64620 Height 67.5 12/18/2017 2.16.840.1.096556.4.391.11.73231 Temperature Oral (F) 97.7 F 12/18/2017 2.16.840.1.115224.4.391.11.27690 Heart Rate 77 12/18/2017 2.16.840.1.825090.4.391.11.22513 Weight 171.2 12/12/2017 2.16.840.1.636873.4.391.11.58479 Height 67.5 12/12/2017 2.16.840.1.796185.4.391.11.64867 Temperature Oral (F) 97.2 F 12/12/2017 2.16.840.1.419955.4.391.11.20302 Heart Rate 76 12/12/2017 2.16.840.1.227996.4.391.11.97393 Weight 176.2 11/18/2017 2.16.840.1.530589.4.391.11.19692 Height 67.5 11/18/2017 2.16.840.1.867363.4.391.11.45520 Temperature Oral (F) 97.4 F 11/18/2017 2.16.840.1.409951.4.391.11.20666 Heart Rate 77 11/18/2017 2.16.840.1.233049.4.391.11.24688 Weight 201.4 09/05/2017 2.16.840.1.121572.4.391.11.37410 Height 67.5 09/05/2017 2.16.840.1.512091.4.391.11.89014 Temperature Oral (F) 97.7 F 09/05/2017 2.16.840.1.813056.4.391.11.97115 Heart Rate 65 09/05/2017 2.16.840.1.973498.4.391.11.78146 Weight 205.4 08/22/2017 2.16.840.1.419594.4.391.11.06590 Height 67.5 08/22/2017 2.16.840.1.024782.4.391.11.02324 Temperature Oral (F) 98.4 F 08/22/2017 2.16.840.1.547667.4.391.11.39735 Heart Rate 63 08/22/2017 2.16.840.1.996710.4.391.11.98341 Weight 198 05/27/2017 Enayet Rahim Height 68 05/27/2017 Enayet Rahim Temperature Oral (F) 98.3 F 05/27/2017 Enayet Rahim Diastolic (mm Hg) 79 05/27/2017 Enayet Rahim Systolic (mm Hg) 126 05/27/2017 Enayet Rahim Encounters Location Location Details Encounter Type Encounter Number Reason For Visit Attending Provider ADM Date DC Date Status Source Outpatient [id number] [facility] 05/30/2016 Active [facility] Outpatient [id number] [facility] 06/14/2016 Active [facility] Outpatient [id number] [facility] 06/19/2016 Active [facility] Outpatient [id number] [facility] 06/19/2016 Active [facility] Outpatient [id number] [facility] 07/23/2016 Active [facility] Outpatient [id number] [facility] 09/03/2016 Active [facility] Outpatient [id number] [facility] 01/04/2017 Active [facility] Outpatient [id number] [facility] 01/21/2017 Active [facility] Outpatient [id number] [facility] 03/25/2017 Active [facility] [id number] [facility] 03/25/2017 03/25/2017 [facility] Outpatient [id number] Miguel Angel Kwong 05/16/2017 05/17/2017 [facility] Outpatient [id number] [facility] 03/25/2018 Active [facility] Outpatient [id number] [facility] 04/11/2018 Active [facility] Outpatient [id number] [facility] 04/24/2018 Active [facility] Depart Emergency Room [id number] FABI MORILLO MD 06/21/2018 06/22/2018 [facility] PreAdmit [id number] Loco Vargas 06/22/2018 06/22/2018 [facility] Inpatient [id number] Saul Chapman Jr 06/23/2018 06/25/2018 [facility] Outpatient [id number] Micah Elliott 07/16/2018 07/17/2018 [facility] Procedures Procedure Code Date Perfomer Comments Source Excision of cyst 429414788 04/11/2018 [facility] Excision of mass of groin region 70332970383068873 04/11/2018 [facility] Excision of cyst 788274798 04/11/2018 [facility] Excision of mass of groin region 08227656574165236 04/11/2018 [facility]
--- OUTSIDE RECORDS SUMMARY | 2018-08-15 13:29 | XMS REPORT ---
Author Author Tiffani Guerrier [facility] eClinicalWorks Address Unknown Phone Unavailable Care Team Providers Care Web Press Operator Apprentice Name Role Phone Tiffani Guerrier CP Unavailable Allergies, Adverse Reactions, Alerts Substance Reaction Event Type N.K.D.A. Info Not Available Non Drug Allergy Problems Problem Type Condition Code Onset Dates Condition Status Problem Essential hypertension I10 Active Problem Erectile dysfunction due to diseases classified elsewhere N52.1 Active Problem Obesity (BMI 30.0-34.9) E66.9 Active Assessment Ganglion cyst of dorsum of left wrist M67.432 Active Assessment Other non-recurrent acute nonsuppurative otitis media of right ear H65.191 Active Assessment Essential hypertension I10 Active Problem Hyperprolactinemia E22.1 Active Problem Hyperglycemia R73.9 Active Problem Male hypogonadism E29.1 Active Problem Increased urinary frequency R35.0 Active Problem High serum estradiol R79.89 Active Problem Low HDL (under 40) E78.6 Active Problem Transient insomnia F51.02 Active Medications Medication Code System Code Instructions Start Date End Date Status Dosage Trimix NDC 0 .15 IM Active as directed Testosterone Cypionate NDC 14556141153 200 MG/ML subcutaneously daily Dec 12, 2017 Active 0.1 ml Lisinopril ND 11583109376 10 mg Orally Once a day Apr 23, 2018 Active 1 tablet Cosentyx Sensoready Pen NDC 56328519119 150 MG/ML Subcutaneous once per month Active 2 ml ANASTROZOLE NDC 0 0.25 mg PO Every other day November 18, 2017 Active 1 tablet Cefdinir ND 65263906606 300 MG Orally daily Apr 23, 2018 May 03, 2018 Active 2 capsules HCG (Lyo) NDC 0 1,000 IU/mL SC/IM twice per week Active 500 iu Lisinopril NDC 92469750499 5 MG Orally Once a day September 05, 2017 Inactive 1 tablet Zolpidem Tartrate NDC 85488494586 10 mg Orally Once a day September 05, 2017 Active 1 tablet at bedtime as needed Vital Signs Date/Time: Apr 23, 2018 Weight 180 lbs Height 67.5 in Temperature 98.4 F Cardiac Monitoring Heart Rate 79 /min BMI 27.77 Index Results No Known Results Summary Purpose eClinicalWorks Submission
--- OUTSIDE RECORDS SUMMARY | 2018-08-15 13:29 | XMS REPORT ---
Author Author Tiffani Guerrier [facility] eClinicalWorks Address Unknown Phone Unavailable Care Team Providers Care Spoon Maker Name Role Phone Tiffani Guerrier CP Unavailable [...] mellitus with other specified complication E11.69 Active Problem Hyperprolactinemia E22.1 Active Problem Mixed hyperlipidemia E78.2 Active Problem Low HDL (under 40) E78.6 Active Problem Transient insomnia F51.02 Active Problem Male hypogonadism E29.1 Active Problem Hyperglycemia R73.9 Active Assessment Erectile dysfunction due to diseases classified elsewhere N52.1 Active Assessment Transient insomnia F51.02 Active Assessment Hyperglycemia R73.9 Active Assessment Essential hypertension I10 Active Assessment High serum estradiol R79.89 Active Problem Essential hypertension I10 Active Assessment Male hypogonadism E29.1 Active Problem Obesity (BMI 30.0-34.9) E66.9 Active Medications Medication Code System Code Instructions Start Date End Date Status Dosage Lisinopril ND 94657156095 10 mg Orally Once a day Active 1 tablet MetFORMIN HCl ER ND 73699168673 500 mg Orally Once a day May 23, 2018 Active 1 tablet with evening meal HCG (Lyo) NDC 0 1,000 IU/mL SC/IM twice per week Active 500 iu Testosterone Cypionate ND 71233048096 200 MG/ML subcutaneously daily Inactive 0.1 ml Cosentyx Sensoready Pen NDC 89667471420 150 MG/ML Subcutaneous once per month Active 2 ml Trimix NDC 0 .15 IM Active as directed Testosterone Cypionate NDC 48818061290 200 MG/ML subcutaneously every day (qd) May 23, 2018 Active 0.08 ml Zolpidem Tartrate ND 41881672952 10 mg Orally Once a day September 05, 2017 Active 1 tablet at bedtime as needed MetFORMIN HCl ER NDC 10120986906 500 mg Orally twice a day (bid) Active 1 tablet ANASTROZOLE NDC 0 0.25 mg PO Every other day Active 1 tablet Vital Signs Date/Time: May 23, 2018 Weight 180 lbs Height 67.5 in Temperature 98.6 F Cardiac Monitoring Heart Rate 78 /min BMI 27.77 Index Results No Known Results Summary Purpose eClinicalWorks Submission
--- OUTSIDE RECORDS SUMMARY | 2018-08-15 13:29 | XMS REPORT ---
Author Author Tiffani Guerrier Organization eClinical[employer] Address Unknown Phone Unavailable Care Team Providers Care Machine Silk Screen Printer Name Role Phone Tiffani Guerrier CP Unavailable Allergies No Known Allergies Problems Problem Type Condition Code Onset Dates Condition Status Problem Essential hypertension I10 Active Problem Erectile dysfunction due to diseases classified elsewhere N52.1 Active Problem Obesity (BMI 30.0-34.9) E66.9 Active Assessment Male hypogonadism E29.1 Active Problem Hyperprolactinemia E22.1 Active Problem Hyperglycemia R73.9 Active Problem Male hypogonadism E29.1 Active Problem Increased urinary frequency R35.0 Active Problem High serum estradiol R79.89 Active Problem Low HDL (under 40) E78.6 Active Problem Transient insomnia F51.02 Active Medications Medication Code System Code Instructions Start Date End Date Status Dosage HCG (Lyo) NDC 0 1,000 IU/mL SC/IM twice per week Active 500 iu Results No Known Results Summary Purpose eClinicalWorks Submission
--- OUTSIDE RECORDS SUMMARY | 2018-08-15 13:29 | XMS REPORT ---
Author Author Tiffani Guerrier Organization eClinical[employer] Address Unknown Phone Unavailable Care Team Providers Care Consumer Credit Counselor Name Role Phone Tiffani Guerrier CP Unavailable [...]
--- OUTSIDE RECORDS SUMMARY | 2018-08-15 13:30 | XMS REPORT ---
Author Author Micah Elliott [facility] eClinicalWorks Address Unknown Phone Unavailable Care Team Providers Care Tin Pourer Name Role Phone Micah Elliott CP Unavailable Allergies, Adverse Reactions, Alerts Substance Reaction Event Type N.K.D.A. Info Not Available Non Drug Allergy Problems Problem Type Condition Code Onset Dates Condition Status Problem Essential hypertension I10 Active Problem Erectile dysfunction due to diseases classified elsewhere N52.1 Active Problem Obesity (BMI 30.0-34.9) E66.9 Active Assessment Transient insomnia F51.02 Active Assessment Non-traumatic rhabdomyolysis M62.82 Active Assessment Cough R05 Active Problem Hyperprolactinemia E22.1 Active Problem Hyperglycemia R73.9 Active Problem Male hypogonadism E29.1 Active Problem Increased urinary frequency R35.0 Active Problem High serum estradiol R79.89 Active Problem Low HDL (under 40) E78.6 Active Problem Transient insomnia F51.02 Active Medications Medication Code System Code Instructions Start Date End Date Status Dosage MetFORMIN HCl ER NDC 08697569671 500 mg Orally twice a day (bid) Active 1 tablet ANASTROZOLE NDC 0 0.25 mg PO Every other day Active 1 tablet Benzonatate NDC 23852190718 100 mg Orally Three times a day July 16, 2018 Active 1-2 capsule as needed for cough HCG (Lyo) NDC 0 1,000 IU/mL SC/IM twice per week Active 500 iu Benzonatate NDC 87853235249 100 mg Orally Three times a day Jun 10, 2018 Active 1 - 2 capsules as needed for cough Cosentyx Sensoready Pen NDC 60550279949 150 MG/ML Subcutaneous once per month Active 2 ml Zolpidem Tartrate NDC 00935406440 10 mg Orally Once a day Active 1 tablet at bedtime as needed MetFORMIN HCl ER NDC 44462882786 500 mg Orally Once a day May 23, 2018 Active 1 tablet with evening meal Testosterone Cypionate NDC 88674000643 200 MG/ML subcutaneously every day (qd) May 23, 2018 Active 0.08 ml Trimix NDC 0 .15 IM Active as directed Proctosol HC [facility] 33460150150 2.5 % Rectal Twice a day Jun 13, 2018 Active 1 application to affected area Lisinopril [facility] 86314249683 10 mg Orally Once a day Active 1 tablet Vital Signs Date/Time: July 16, 2018 Weight 184 lbs Height 67.5 in Temperature 98.3 F Cardiac Monitoring Heart Rate 70 /min BMI 28.39 Index Results No Known Results Summary Purpose eClinicalWorks Submission
--- OUTSIDE RECORDS SUMMARY | 2018-08-15 13:30 | XMS REPORT ---
[facility] Address Unknown Phone Unavailable Care Team Providers Care Geospatial Information Technologist Name Role Phone Se MORILLO Unavailable Unavailable Problems This patient has no known problems. Allergies, Adverse Reactions, Alerts This patient has no known allergies or adverse reactions. Medications This patient has no known medications. Results Test Description Test Time Test Comments Text Results Atomic Results Result Comments CT UPPER EXT LT WITH-HOPD 2018-06-21 22:22:00 [place] [address] Patient Name: TORI KO MR #: [id number] : 1975 Age/Sex: 42/M Req #: [id number] Adm Physician: Ordered by: FABI MORILLO MD Report #: [id number] Location: [facility] Room/Bed: Procedure: [id number] HOPD/CT UPPER EXT LT WITH-HOPD Exam Date: 06/21/18 Exam Time: 0 REPORT STATUS: Signed EXAM: CT left upper extremity WITH contrast INDICATION: Swelling COMPARISON: None. TECHNIQUE: The left upper extremity was scanned utilizing a multidetector helical scanner after administration of IV contrast. Coronal and sagittal reformations were obtained. Routine protocol was performed. IV CONTRAST: 100 mL of Isovue-370 ORAL CONTRAST: Water COMPLICATIONS: None RADIATION DOSE: Total DLP: 336.9 mGy*cm Dose modulation, iterative reconstruction, and/or weight based adjustment of the mA/kV was utilized to reduce the radiation dose to as low as reasonably achievable. FINDINGS: BONES: No acute osseous abnormalities. Calcific densities adjacent to the glenoid may represent loose intra-articular bodies of the glenohumeral joint. SOFT TISSUES: Edema within the deltoid muscle with ill-defined hypoattenuating approximately 5.6 x 2.2 cm area with faint possible peripheral enhancement (series 5 image 83) and more focal hypoattenuating areas measuring fat density. Edema in the left upper extremity. IMPRESSION: Ill-defined hypoattenuating 5.6 cm area in the left deltoid muscle may represent myonecrosis given reported history of rhabdomyolysis. Phlegmon with developing abscess another consideration the appropriate clinical setting. Signed by: DR. Kee Rodney MD on 06/21/2018 10:40 PM Dictated By: KEE RODNEY MD 39 Transcribed By: ELIZABETH on 06/21/182239 COPY TO: FABI MORILLO MD CXR 2 VIEW - HOPD 2018-06-21 20:59:00 [place] [address] Patient Name: TORI KO MR #: [id number] : 1975 Age/Sex: 42/M Req #: [id number] Adm Physician: Ordered by: FABI MORILLO MD Report #: [id number] Location: [facility] Room/Bed: Procedure: [id number] HOPD/CXR 2 VIEW - HOPD Exam Date: 06/21/18 Exam Time: 2047 REPORT STATUS: Signed EXAMINATION: CXR 2 VIEW - HOPD INDICATION: L eft upper arm swelling. COMPARISON: None FINDINGS: TUBES and LINES: None. LUNGS: Lungs are well inflated. Lungs are clear. There is no evidence of pneumonia or pulmonary edema. PLEURA: No pleural effusion or pneumothorax. HEART AND MEDIASTINUM: The cardiomediastinal silhouette is unremarkable. BONES AND SOFT TISSUES: No acute osseous lesion. Soft tissues are unremarkable. UPPER ABDOMEN: No free air under the diaphragm. IMPRESSION: No acute thoracic abnormality. Signed by: DR. Kee Rodney MD on 06/21/2018 9:00 PM Dictated By: KEE RODNEY MD 99 Transcribed By: ELIZABETH on 06/21/182099 COPY TO: FABI MORILLO MD
--- OUTSIDE RECORDS SUMMARY | 2018-08-15 13:30 | XMS REPORT | Summary of Care ---
Author Author [facility] Organization [facility] Address Unknown Phone Unavailable Encounter HQ Dewayne_suzan(FIN) [id number] Date(s): 07/16/18 - 07/16/18 [facility] [address] [place] [address]- Discharge Disposition: Home or Self Care Attending Physician: Micah Elliott MD Vital Signs No data available for this section Problem List Condition Effective Dates Status Health Status Informant Frequent Resolved urination(Confirmed) Breast Resolved lump(Confirmed) Painful Resolved urination(Confirmed) Allergies, Adverse Reactions, Alerts Substance Reaction Severity Status NKDA Active Medications No data available for this section Results No data available for this section Immunizations No data available for this section Procedures Procedure Date Related Diagnosis Body Site Status Excision of cyst 04/11/18 Completed Excision of mass of groin region 04/11/18 Completed Social History Social History Type Response Smoking Status Current every day smoker; Type: eCigarettes; Exposure to Tobacco Smoke pt smoker; Cigarette Smoking Last 365 Days Yes; Reg Smoking Cessation Counseling Yes entered on: 06/22/18 Assessment and Plan No data available for this section
--- OUTSIDE RECORDS SUMMARY | 2018-08-15 13:30 | XMS REPORT | Summary of Care ---
Author Author [facility] Organization [facility] Address Unknown Phone Unavailable Encounter HQ Dewayne_suzan(FIN) [id number] Date(s): 06/21/18 - 06/21/18 [facility] [address] [place] [address]- Attending Physician: Loco Vargas MD Admitting Physician: Loco Vargas MD Vital Signs No data available for [...]
--- OUTSIDE RECORDS SUMMARY | 2018-08-15 13:30 | XMS REPORT | Summary of Care ---
Author Author [facility] Organization [facility] Address Unknown Phone Unavailable Encounter HQ Yen[facility](FIN) [id number] Date(s): 06/23/18 - 06/25/18 [facility] [address] [place] [address]- Encounter Diagnosis Rhabdomyolysis (Final) - Discharge Disposition: Home or Self Care Attending Physician: Saul Ortega MD Admitting Physician: Saul Ortega MD Vital Signs 1 2 3 Most recent to oldest [Reference Range]: 172.72 cm (06/22/18 1:40 AM) Height 98 DegF (06/25/18 11:14 AM) 98.1 DegF (06/25/18 7:51 AM) 98.9 DegF (06/25/18 4:19 AM) Temperature Oral [96.4-99.1 DegF] 131/77 mmHg (06/25/18 11:14 AM) 126/72 mmHg (06/25/18 7:51 AM) 124/69 mmHg (06/25/18 4:19 AM) Blood Pressure [90-140/60-90 mmHg] 18 BRMIN (06/25/18 11:14 AM) 18 BRMIN (06/25/18 7:51 AM) 18 BRMIN (06/25/18 4:19 AM) Respiratory Rate [14-20 BRMIN] 75 bpm (06/25/18 11:14 AM) 74 bpm (06/25/18 7:51 AM) 68 bpm (06/25/18 4:19 AM) Peripheral Pulse Rate [60-100 bpm] 84.091 kg (06/22/18 1:40 AM) Weight 28.19 m2 (06/22/18 1:40 AM) Body Mass Index Problem List Condition Effective Dates Status Health Status Informant Frequent Resolved urination(Confirmed) Breast Resolved lump(Confirmed) Painful Resolved urination(Confirmed) Allergies, Adverse Reactions, Alerts Substance Reaction Severity Status NKDA Active Medications RN-DO NOT give 15:00 Vanc on 06/24 till trough drawn` RN-DO NOT give 15:00 Vanc on 06/24 till trough drawn`, Attn:RN, Drug form : MISC, Route: MISC, ONCE, 06/24/18 14:00:00 [employer] DIRECT[employer], Stop date: 06/24/18 14:00:[address] Start Date: 06/24/18 Stop Date: 06/24/18 Status: Completed acetaminophen 650 mg, 2 tab, Route: PO, Drug form: TAB, Q4H, Dosing Weight 84.091, kg, PRN For Temp > 100.4 F, Start date: 06/22/18 4:08:00 [employer]CREATIONAL [employer]ORTS DIRECTOR, Duration: 30 day, Stop date: 07/22/18 4:07:00 CDT Notes: Do not exceed 4 gm/day. (Same as: Tylenol) Start Date: 06/22/18 Stop Date: 06/25/18 Status: Discontinued Ancef + Sodium Chloride 0.9% IV 100 mL 500 mg, Route: IVPB, ABXQ8H, Dosing Weight 84.091, kg, Start date: 06/22/18 5:00 :00 [employer] DIRECTOR, Duration: 5 day, Stop date: 06/26/18 21:00:00 [employer]ATIONAL [employer]OR[employer] DIRECTOR, ABX Indication: Skin /Soft Tissue Infection Notes: (Same As: Ancef, Kefzol) Start Date: 06/22/18 Stop Date: 06/22/18 Status: Discontinued cefepime 1 gm, Route: IVPB, ABXQ8H, Dosing Weight 84.091, kg, (CrCl >/=50 ml/min), Start date: 06/22/18 11:00:00 [employer] DIRECTOR, Duration: 10 day, Stop date: 07/02/18 3:00:00 [employer]OR[employer] DIRECTOR, ABX Indication: Skin/Soft Tissue Infection Start Date: 06/22/18 Stop Date: 06/22/18 Status: Deleted Dextrose 50% Syringe 12.5 gm, 25 mL, Route: IVP, Drug Form: INJ, Dosing Weight 84.091, kg, PRN, PRN B lood Glucose Results, Start date: 06/22/18 4:08:00 [employer]OR[employer] DIRECTOR, Duration: 30 day, Stop d ate: 07/22/18 5:07:00 CDT Start Date: 06/22/18 Stop Date: 06/25/18 Status: Discontinued Dextrose 50% Syringe 25 gm, 50 mL, Route: IVP, Drug Form: INJ, Dosing Weight 84.091, kg, PRN, PRN Blo od Glucose Results, Start date: 06/22/18 4:08:00 [employer] DIRECTOR, Duration: 30 day, Stop rosa e: 07/22/18 5:07:00 CDT Start Date: 06/22/18 Stop Date: 06/25/18 Status: Discontinued glucagon 1 mg, Route: IM, Drug form: PDR/INJ, PRN, Dosing Weight 84.091, kg, PRN Blood Gl ucose Results, Start date: 06/22/18 4:08:00 [employer]OR[employer] DIRECTOR, Duration: 30 day, Stop date: 5:07:00 CDT Start Date: 06/22/18 Stop Date: 06/25/18 Status: Discontinued Keflex 500 mg oral capsule 500 mg=1 cap, PO, QID, X 10 day, # 40 cap, 0 Refill(s), Pharmacy: [facility] [id number] Start Date: 06/25/18 Stop Date: 07/05/18 Status: Ordered Lactated Ringers IV 1,000 mL 1,000 mL, Rate: 150 ml/hr, Infuse over: 6.7 hr, Route: IV, Dosing Weight 84.091 kg, Total Volume: 1,000, Start date: 06/22/18 12:14:00 RECREATIONAL [employer]ORTS DIRECTOR, Duration: 30 day, St op date: 07/22/18 12:13:00 CDT, 2.03, m2 Start Date: 06/22/18 Stop Date: 06/25/18 Status: Discontinued lisinopril 10 mg, 2 tab, Route: PO, Drug form: TAB, Daily, Dosing Weight 84.091, kg, Start date: 06/23/18 9:00:00 [employer] DIRECTOR, Duration: 30 day, Stop date: 07/22/18 9:00:00 CDT Notes: (Same as: Prinivil Zestril) Start Date: 06/23/18 Stop Date: 06/25/18 Status: Discontinued Maxipime + Sodium Chloride 0.9% IV 100 mL 1 gm, Route: IVPB, ABXQ8H, Start date: 06/22/18 21:00:00 [employer]CREATIONAL [employer]OR[employer] DIRECTOR, Duration: 10 day, Stop date: 07/02/18 13:00:00 RECREATIONAL [employer]ORTS DIRECTOR, ABX Indication: Skin/Soft Tissue Infection Notes: (Same As: Maxipime) MEDICATION WASTE Product Size: 1000 mgProduc t Wasted: ___ mg Start Date: 06/22/18 Stop Date: 06/25/18 Status: Discontinued Maxipime + sterile water 10 mL 1 gm, Route: IV, ONCE, Start date: 06/22/18 12:44:00 RECREATIONAL [employer]OR[employer] DIRECTOR, Stop date: 06/22/18 12 :44:00 RECREATIONAL SPORTS DIRECTOR, ABX Indication: Skin/Soft Tissue Infection Notes: (Same As: Maxipime) MEDICATION WASTE Product Size: 1000 mgProduc t Wasted: ___ mg Start Date: 06/22/18 Stop Date: 06/22/18 Status: Completed metFORMIN 250 mg, PO, BID, 0 Refill(s) Start Date: 06/23/18 Status: Ordered nicotine 7 mg, 1 patch, Route: TOP, Drug form: ERFILM, Daily, Dosing Weight 84.091, kg, P riority: NOW, Start date: 06/22/18 12:13:00 RECREATIONAL [employer]OR[employer] DIRECTOR, Duration: 30 day, Stop date: 9:00:00 CDT Notes: (Same as: Habitrol)"Remove old patch before application of new patch"WAST E: F/P - P Waste Black; E - P Waste Black Start Date: 06/22/18 Stop Date: 06/25/18 Status: Discontinued normal saline 0.9% IV 1,000 mL 1,000 mL, Rate: 125 ml/hr, Infuse over: 8 hr, Route: IV, Dosing Weight 84.091 kg , Total Volume: 1,000, Start date: 06/22/18 4:11:00 [employer] DIRECTOR, Duration: 30 day, Stop date: 07/22/18 4:10:00 CDT, 2.03, m2 Start Date: 06/22/18 Stop Date: 06/22/18 Status: Discontinued Tylenol with Codeine #3 oral tablet 1 tab, PO, Q6H, PRN Pain, X 7 day, # 28 tab, 0 Refill(s) Start Date: 06/25/18 Stop Date: 07/02/18 Status: Ordered vanc trough vanc trough, reminder, Drug form: MISC, Route: MISC, ONCE, 06/25/18 17:30:00 RE[employer]ATIONAL [employer]OR[employer] DIRECTOR , Stop date: 06/25/18 17:30:00 RE[employer]ATIONAL [employer] DIRECTOR Start Date: 06/25/18 Stop Date: 06/25/18 Status: Canceled vancomycin + Sodium Chloride 0.9% IV 250 mL 1,250 mg, Route: IVPB, ABXQ8H, Start date: 06/22/18 13:00:00 RE[employer] DIRECTOR, Stop date: 10:00:00 RECREATIONAL SPORTS DIRECTOR, ABX Indication: Skin/Soft Tissue Infection Notes: TIME CRITICAL MEDICATION(Same As: Vancocin)Infusion rate< 1000 mg: infuse over 1 [id number] - 1500 mg: infuse over 1.5 [id number] - 2000 mg: infuse over 2 hours> 2001 mg: infuse over 2.5 hoursFor adult patients only: Round to nearest 250 mg per Medical Staff approval MEDICATION WASTE Product Size: 1000 mgProduct Wasted: ___ mg Start Date: 06/22/18 Stop Date: 06/25/18 Status: Discontinued Vancomycin Pharmacy Dosing 1 ea, Route: IV, Q12H, Dosing Weight 84.091, kg, Start date: 06/22/18 21:00:[address], Duration: 10 day, Stop date: 07/02/18 9:00:00 RECREATIONAL [employer]OR[employer] DIRECTOR, Pharmacy to dose, ABX Ind ication: Skin/Soft Tissue Infection Start Date: 06/22/18 Stop Date: 06/22/18 Status: Canceled Results ELECTROLYTES 1 2 3 Most recent to oldest [Reference Range]: 138 mEq/L (06/25/18 5:08 AM) 141 mEq/L (06/24/18 6:30 AM) 140 mEq/L (06/23/18 4:43 AM) Sodium Lvl [135-145 mEq/L] 3.9 mEq/L (06/25/18 5:08 AM) 4.3 mEq/L (06/24/18 6:30 AM) 4.2 mEq/L (06/23/18 4:43 AM) Potassium Lvl [3.5-5.1 mEq/L] 108 mEq/L (06/25/18 5:08 AM) 109 mEq/L (06/24/18 6:30 AM) 109 mEq/L (06/23/18 4:43 AM) Chloride Lvl [95-109 mEq/L] 29 mEq/L (06/25/18 5:08 AM) 24 mEq/L (06/24/18 6:30 AM) 26 mEq/L (06/23/18 4:43 AM) CO2 [24-32 mEq/L] 4.9 mEq/L *LOW* (06/25/18 5:08 AM) 12.3 mEq/L (06/24/18 6:30 AM) 9.2 mEq/L *LOW* (06/23/18 4:43 AM) AGAP [10.0-20.0 mEq/L] CHEM PANEL 1 2 3 Most recent to oldest [Reference Range]: 0.80 mg/dL (06/25/18 5:08 AM) 0.81 mg/dL (06/24/18 6:30 AM) 0.81 mg/dL (06/23/18 4:43 AM) Creatinine Lvl [0.50-1.40 mg/dL] 109 mL/min/1.73m2 1 *NA* (06/25/18 5:08 AM) 109 mL/min/1.73m2 2 *NA* (06/24/18 6:30 AM) 109 mL/min/1.73m2 3 *NA* (06/23/18 4:43 AM) eGFR 8 mg/dL (06/25/18 5:08 AM) 8 mg/dL (06/24/18 6:30 AM) 8 mg/dL (06/23/18 4:43 AM) BUN [7-22 mg/dL] 10 (06/23/18 4:43 AM) B/C Ratio [6-25] 109 mg/dL *HI* (06/25/18 5:08 AM) 109 mg/dL *HI* (06/24/18 6:30 AM) 119 mg/dL *HI* (06/23/18 4:43 AM) Glucose Lvl [70-99 mg/dL] 6.2 g/dL *LOW* (06/23/18 4:43 AM) Total Protein [6.4-8.4 g/dL] 2.8 g/dL *LOW* (06/23/18 4:43 AM) Albumin Lvl [3.5-5.0 g/dL] 3.4 g/dL (06/23/18 4:43 AM) Globulin [2.7-4.2 g/dL] 0.8 (06/23/18 4:43 AM) A/G Ratio [0.7-1.6] 8.3 mg/dL *LOW* (06/25/18 5:08 AM) 8.2 mg/dL *LOW* (06/24/18 6:30 AM) 7.8 mg/dL *LOW* (06/23/18 4:43 AM) Calcium Lvl [8.5-10.5 mg/dL] 62 unit/L (06/23/18 4:43 AM) ALT [0-65 unit/L] 52 unit/L *HI* (06/23/18 4:43 AM) AST [0-37 unit/L] 60 unit/L (06/23/18 4:43 AM) Alk Phos [39-136 unit/L] 0.4 mg/dL (06/23/18 4:43 AM) Bili Total [0.2-1.3 mg/dL] 1Result Comment: The eGFR is calculated using [...] be mul tiplied by the estimated BMI. 2Result Comment: The eGFR is calculated using the [...] be mul tiplied by the estimated BMI. 3Result Comment: The eGFR is calculated using the [...] be mul tiplied by the estimated BMI. CARDIAC ENZYMES 1 2 3 Most recent to oldest [Reference Range]: 437 unit/L *HI* (06/25/18 5:08 AM) 759 unit/L *HI* (06/24/18 6:30 AM) 1366 unit/L *HI* (06/23/18 4:43 AM) Total CK [12-191 unit/L] SPECIAL CHEMISTRY 1 2 3 Most recent to oldest [Reference Range]: 4.8 % (06/22/18 11:46 AM) Hgb A1C [<=5.6 %] DRUG SCREEN 1 2 3 Most recent to oldest [Reference Range]: Negative *NA* (06/22/18 11:46 AM) U Amph Scr [Negative] Negative *NA* (06/22/18 11:46 AM) U Kiera Scr [Negative] Negative *NA* (06/22/18 11:46 AM) U Benzodiaz Scr [Negative] Negative *NA* (06/22/18 11:46 AM) U Cannab Scr [Negative] Negative *NA* (06/22/18 11:46 AM) U Cocaine Scr [Negative] Negative *NA* (06/22/18 11:46 AM) U Opiate Scr [Negative] Negative *NA* (06/22/18 11:46 AM) U Phencyclidine Scr [Negative] See Note *NA* (06/22/18 11:46 AM) UDS Note TOXICOLOGY 1 2 3 Most recent to oldest [Reference Range]: 1415 *NA* (06/24/18 2:23 PM) Vanco Tr TND 5.4 ug/ml *NA* (06/24/18 2:23 PM) Vanco Tr HEMATOLOGY 1 2 3 Most recent to oldest [Reference Range]: 7.0 K/CMM (06/23/18 4:43 AM) 8.9 K/CMM (06/22/18 11:46 AM) WBC [3.7-10.4 K/CMM] 4.37 M/CMM *LOW* (06/23/18 4:43 AM) 4.24 M/CMM *LOW* (06/22/18 11:46 AM) RBC [4.70-6.10 M/CMM] 13.2 g/dL *LOW* (06/23/18 4:43 AM) 13.1 g/dL *LOW* (06/22/18 11:46 AM) Hgb [14.0-18.0 g/dL] 40.7 % *LOW* (06/23/18 4:43 AM) 38.8 % *LOW* (06/22/18 11:46 AM) Hct [42.0-54.0 %] 93.1 fL (06/23/18 4:43 AM) 91.4 fL (06/22/18 11:46 AM) MCV [80.0-94.0 fL] 30.2 pg (06/23/18 4:43 AM) 30.8 pg (06/22/18 11:46 AM) MCH [27.0-31.0 pg] 32.5 g/dL (06/23/18 4:43 AM) 33.7 g/dL (06/22/18 11:46 AM) MCHC [32.0-36.0 g/dL] 14.8 % *HI* (06/23/18 4:43 AM) 14.6 % *HI* (06/22/18 11:46 AM) RDW [11.5-14.5 %] 8.2 fL (06/23/18 4:43 AM) 8.1 fL (06/22/18 11:46 AM) MPV [7.4-10.4 fL] 318 K/CMM (06/23/18 4:43 AM) 302 K/CMM (06/22/18 11:46 AM) Platelet [133-450 K/CMM] 67.1 % (06/23/18 4:43 AM) 68.6 % (06/22/18 11:46 AM) Segs [45.0-75.0 %] 19.9 % *LOW* (06/23/18 4:43 AM) 18.5 % *LOW* (06/22/18 11:46 AM) Lymphocytes [20.0-40.0 %] 9.3 % (06/23/18 4:43 AM) 9.9 % (06/22/18 11:46 AM) Monocytes [2.0-12.0 %] 2.9 % (06/23/18 4:43 AM) 1.5 % (06/22/18 11:46 AM) Eosinophils [0.0-4.0 %] 0.8 % (06/23/18 4:43 AM) 1.5 % *HI* (06/22/18 11:46 AM) Basophils [0.0-1.0 %] 4.7 K/CMM (06/23/18 4:43 AM) 6.1 K/CMM (06/22/18 11:46 AM) Neutrophils # [1.5-8.1 K/CMM] 1.4 K/CMM (06/23/18 4:43 AM) 1.6 K/CMM (06/22/18 11:46 AM) Lymphocytes # [1.0-5.5 K/CMM] 0.7 K/CMM (06/23/18 4:43 AM) 0.9 K/CMM *HI* (06/22/18 11:46 AM) Monocytes # [0.0-0.8 K/CMM] 0.2 K/CMM (06/23/18 4:43 AM) 0.1 K/CMM (06/22/18 11:46 AM) Eosinophils # [0.0-0.5 K/CMM] 0.1 K/CMM (06/23/18 4:43 AM) 0.1 K/CMM (06/22/18 11:46 AM) Basophils # [0.0-0.2 K/CMM] 13.4 seconds (06/22/18 6:50 PM) PT [12.0-14.7 seconds] 1.04 (06/22/18 6:50 PM) INR [0.85-1.17] BACTERIAL - SEROLOGY 1 2 3 Most recent to oldest [Reference Range]: Negative (06/22/18 6:06 AM) MRSA by PCR Microbiology Reports TEST: Culture: Aspirate/Body Fluid/Tissue STATUS: Auth (Verified) BODY SITE: Left Arm SOURCE: Aspirate COLLECTED DATE/TIME: 06/23/18 11:33 AM FINAL REPORT No Growth STAIN REPORT No Wbc'S Or Organisms Seen Immunizations No data available for this section [...] Yes entered on: 06/22/18 Assessment and Plan Extracted from: Title: [facility] Author: Saul Ortega MD Date: 06/25/18 Hospitalist Service Discharge Summary [facility] Hospitalist Service Discharge Summary PATIENT NAME:TORI KO ATTENDING: SAUL MEDINA JR, MD ADMISSION DATE: 06/23/2018 10:30 DISCHARGE DATE: 06/25/2018 11:55 DISCHARGE DIAGNOSIS: Cutaneous abscess of limb, unspecified (L02.419) Rhabdomyolysis (M62.82) CONSULTING PHYSICIANS/SERVICES: Butch Mornoy: Service: General Surgery DISCHARGE CONDITION: Fair HISTORY OF PRESENT ILLNESS: Please see admission history and physical for presenting details HOSPITAL COURSE: Patient was admitted secondary to left shoulder pain and radiographic concern for a abscess. Patient has a history of low testosterone and takes testosterone injections. It was believed that he may have developed a small abscess based on outside imaging studies. Patient was seen by general surgery who recommended interventional radiology to aspirate abscess. Unfortunately no significant amount of fluid was obtained through this aspiration. Patient was started on antibiotics demonstrated significant improvement. Patient was also found to have rhabdomyolysis for which he was given intravenous IV fluids and had a significant decrease in his creatinine kinase. Patient is found to be stable for discharge on oral antibiotic regimen. Strict instructions were given to the patient in regards to improvement and return to ER precautions. I saw and examined patient on day of discharge. Patient was discharged in fair condition with appropriate medications and appropriate follow-up. DISCHARGE INSTRUCTIONS: Please notify your physician if any of the following occur: Bleeding, Fever, Nausea, Pain, Shortness of breath, Signs of infection, Swelling Activity: Activity as tolerated, No strenuous activity DISCHARGE DIET: Home Diet: Diet Heart Healthy DISCHARGE MEDICATIONS: PLEASE SEE HMR FOR DETAILS PERTAINING TO DISCHARGE MEDICATIONS DISCHARGE FOLLOWUP: Follow Up With Micah Elliott MD, Call for appointment, within: 1 Week, reason: Follow Up On Treatment A total of 37 minutes was spent planning discharge which included bedside counseling. Extracted from: Title: Progress Note Complex * Author: Clover eDan MD Date: 06/24/18 Impression and Plan 42 YO M with testosterone shots, HTN admitted with L. deltoid cellulitis and possible abscess from OSH ER after testosterone injection to site, rhabdomyolysis. . LUE swelling and redness post testosterone Injection with possible abscess - CT deltoid at OSH with ? 5.6cm phlegmon. Doppler is neg for DVT. Pt is s/p aspiration of abscess on 06/23/18 -cont Vanc and cefepime day 3. Appreciate surg recms -pain control and follow HTN - controlled -cont lisinopril Steroid induced hyperglycemia - A1C - 4.8 -SSI and accu check Tobacco use - -counseled -continue Nicotine patch Acute rhabdomyolysis - improved [phone] -cont LR and follow Dispo - await final cxs and sensitivities, continued improvement of rhabdomyolysis. Possibly discharge home tomorrow. Extracted from: Title: Surgery Staff Note Author: Butch Monroy Date: 06/22/18 DO Patient seen and evaluated. Full [dictated]Consult to follow Agree with current mngt strategy. I will review OSH CT in the AM with [facility] [place]. Further reccs to follow. Anson Monroy D.O Extracted from: Title: History and Physical Author: Giselle Jackson MD Date: 06/22/18 Rhabdomyolysis(M62.82) IVFs, Ice packs,serial CK and renal function monitoring Ordered: Admit/Condition, 06/22/18 4:11:00 RECREATIONAL SPORTS DIRECTOR, Status: Out Patient with Observation Services, Acute, Expected LOS: 1 Midnight, Saul Ortega MD, Admit MD Review/Approve Yes, Isolation: No Isolation/Standard Precautions, Rhabdomyolysis Left deltoid swelling/ abscess - check LUE doppler to r/o abscess. - IV ancef
[2018-08-15] MEDS ORDERED: DEXAMETHASONE SOD PHOS 10 MG/1 ML VIAL IM ONE (15:00)
[2018-08-15] MEDS ORDERED: KETOROLAC TROMETHAMINE 60 MG/2 ML VIAL IM ONE (15:00)
== END 2018-08-15 14:47 | disposition home or self-care (01) ==
LOC: FSED 13:25
DX: R53.83 Other fatigue (principal); B34.9 Viral infection, unspecified
CPT/HCPCS: 81003; 87400; 99283; J1100; J1885

== ENCOUNTER 2024-10-19 11:50 | Emergency (ER) | payer OTHER ==
[~2024-10-19] VITALS: Ht 172.7 cm; Wt 85.4 kg
[2024-10-19 12:02] VITALS: PULSE 86; RESP 18; TEMP 98.5
[2024-10-19] MEDS ORDERED: AUGMENTIN 500-1 EACH PO (12:18)
[2024-10-19] MEDS: TETANUS/DIPHTHERIA TOX ADULT 0.5 ML SYR IM ONE (12:21)
[2024-10-19 14:04] VITALS: BP 145/76; PULSE 73; RESP 18; O2SAT 100
== END 2024-10-19 14:05 | disposition home or self-care (01) ==
LOC: FSED 12:15
DX: S81.831A Puncture wound without foreign body, right lower leg, initial encounter (principal); W22.09XA Striking against other stationary object, initial encounter; Y93.01 Activity, walking, marching and hiking; Y92.89 Other specified places as the place of occurrence of the external cause; I10 Essential (primary) hypertension
CPT/HCPCS: 90714; 93971; 99283